=== PATIENT | male | born 1950 | race Caucasian/White ===

== ENCOUNTER → 2023-04-10 | Outpatient (CLI) | payer MEDICARE, SELFPAY ==
[2023-04-07 09:49] LABS: BUN 6 mg/dL (7-18); EST Glomerular Filtration Rate 70 mL/min (>60); Est Glom Filt Rate - Afr Amer 85 mL/min (>60)
--- NOTE | 2023-04-10 15:43 | CT_ITS ---
STUDY: CTA NECK WITH CONTRAST REASON FOR EXAM: Male, 72 years old. CAROTID ARTERY STENOSIS RADIATION DOSAGE (If Supplied By Facility): CTDIvol = ( 25.29 ) mGy, DLP = ( 417.18 ) mGycm TECHNIQUE: CT angiography with multi-detector data acquisition was performed from the aortic arch to the skull base following intravenous administration of IV 100mL Isovue-370. MIP images were reconstructed from the axial data set. Post-processing of the angiographic images was performed, with multiplanar reformation and 3D reconstruction. Individualized dose optimization techniques were used for this CT. COMPARISON: None. FINDINGS: AORTIC ARCH: Nonspecific emphysematous changes in the lung apices. There is mild atherosclerotic calcific plaque formation of the aortic arch and great vessels arising from the aortic arch, without a hemodynamically significant stenosis. There is a normal origin of the brachiocephalic, left common carotid, and left subclavian arteries. RIGHT CAROTID ARTERIES: Normal right common carotid artery (CCA). There is mild atherosclerotic plaque formation with minimal narrowing of the right carotid bulb. There is mild to moderate atherosclerotic plaque formation of the origin of the right internal carotid artery with less than 50% cross sectional diameter stenosis. Normal visualized cervical portion of the right internal carotid artery. Normal origin of the right external carotid artery (ECA). LEFT CAROTID ARTERIES: Normal left common carotid artery (CCA). There is mild atherosclerotic plaque formation with minimal narrowing of the left carotid bulb. There is extensive atherosclerotic plaque formation of the origin of the left internal carotid artery with an estimated stenosis of greater than 70%. Normal visualized cervical portion of the left internal carotid artery. There is mild atherosclerotic plaque formation of the origin of the left external carotid artery with no stenosis. VERTEBRAL ARTERIES: Normal bilateral vertebral arteries. CT/CTA Neck W/WO Contrast IMPRESSION: Atherosclerotic disease, predominantly in the region of carotid bulb with high-grade stenosis at the origin of the left internal carotid artery. Less than 50% diameter stenosis at the origin and proximal right internal carotid artery. Normal bilateral vertebral arteries. Electronically Signed: Aracely Andrade MD at 17:42 EST ,
[2023-04-10 16:28] LABS: CREATININE FINGERSTICK 1.2 mg/dL (0.70-1.30); EGFR FINGERSTICK > 60.0000 mL/min (>60)
== END | disposition home or self-care (01) ==
LOC: CVS 15:38
PROVIDERS: PCP Internal Medicine; Referring Provider Surgery Vascular Surgery; Visit Provider Surgery Vascular Surgery
DX: I65.22 Occlusion and stenosis of left carotid artery (principal)
CPT/HCPCS: 36415; 70498; 82565; 84520; Q9967

== ENCOUNTER 2023-04-18 07:20 | Emergency (ER) | payer MEDICARE, SELFPAY ==
[2023-04-18 07:21] VITALS: BP 139/92; PULSE 67; RESP 18; TEMP 35.9; O2SAT 99; BMI 19.5
--- NOTE | 2023-04-18 07:45 | EKG12_ITS ---
Test Reason : REPEAT EKG Blood Pressure : / mmHG Vent. Rate : 042 BPM Atrial Rate : 042 BPM P-R Int : 176 ms QRS Dur : 140 ms QT Int : 498 ms P-R-T Axes : 078 -10 115 degrees QTc Int : 415 ms Marked sinus bradycardia with Premature supraventricular complexes Left bundle branch block Abnormal ECG Confirmed by MONI GERBER, CY ([id number]), editor greeting card HAILE FOWLER ([id number]) on 04/19/2023 9:24:15 AM Referred By: CJ Confirmed By:CY MONTENEGRO MD
[2023-04-18 07:47] LABS: Absolute Lymphocyte Count 1.85 X10^3/uL (0.83-4.51); Absolute Neutrophil Count 3.6 X10^3/uL (2.0-7.7); Basophil# 0.05 X10^3/uL; Basophil% 0.6 % (0-1); Eosinophil# 2.41 X10^3/uL; Eosinophils% 27.9 % (0-5); Hematocrit 48.3 % (40-54); Hemoglobin 15.9 g/dL (13.0-16.5); Lymphocyte # 1.85 X10^3/ul (0.83-4.51); Lymphocyte % 21.4 % (19-41); Mean Corp Hgb Conc 32.9 g/dL (32-36); Mean Corpuscular Hgb 31.6 pg (27.0-32.0); Mean Platelet Vol. 12.1 fl (6.2-12.0); Monocyte# 0.69 X10^3/uL; NRBC Flagged by Analyzer 0 % (0-5); Neutrophil % 41.8 % (47-70); POSITIVE DIFFERENTIAL YES; Platelet Count 180 K/mm3 (150-450); RBC Distribution Width CV 12.9 % (11.6-14.6); Red Blood Count 5.03 M/mm3 (4.6-6.2); White Blood Count 8.6 K/mm3 (4.4-11.0)
[2023-04-18] MEDS: Aspirin 81 MG TAB.CHEW 324 MG PO (08:01)
--- NOTE | 2023-04-18 08:03 | RAD_ITS ---
STUDY: X-RAY CHEST REASON FOR EXAM: Male, 72 years old. chest pain TECHNIQUE: 2 AP portable view of the chest. COMPARISON: None. FINDINGS: Normal heart size. No visualized consolidation. The lungs are clear and expanded. There is no demonstrated pleural abnormality. Sternal cerclage wires and vascular clips are present from a prior sternotomy and coronary artery bypass graft procedure (CABG). Normal mediastinum and chuck. Normal visualized pulmonary arteries. Normal visualized aortic arch and descending thoracic aorta. There are diffuse degenerative changes of the visualized thoracic spine. Normal visualized ribs, clavicles, and shoulders. There is no demonstrated abnormality of the visualized soft tissue structures of the upper abdomen. RAD/Chest 1 View (Portable) IMPRESSION: Degenerative changes, as described above. No demonstrated acute cardiopulmonary process. Electronically Signed: Geo Barroso MD at 8:13 EST ,
[2023-04-18 08:07] LABS: Anion Gap 6 (5-15); BUN 8 mg/dL (7-18); BUN/Creat Ratio 6.8 RATIO (10-20); Calcium,Total 8.9 mg/dL (8.5-10.1); Chloride 104 mmol/L (98-107); Creatinine, Serum 1.18 mg/dL (0.70-1.30); EST Glomerular Filtration Rate 65 mL/min (>60); Est Glom Filt Rate - Afr Amer 78 mL/min (>60); Estimated Creatinine Clearance 48.73 ml/min; Glucose 109 mg/dL (74-106); Potassium 3.7 mmol/L (3.5-5.1); Sodium Level 134 mmol/L (136-145); Troponin-I HS (w/2H Reflex) 12 pg/mL (3.0-78.0)
--- NOTE | 2023-04-18 08:07 | ED.VIS.CHEST ---
HPI History of Present Illness Chief Complaint: Chest Pain Narrative Narrative: 72-year-old male with history of cardiac disease, cardiac stents, CABG presenting with chest pain which started about 510 this morning. It woke him up from sleep. He admits to dyspepsia and pain that radiates up into the neck and into the left shoulder. Symptoms last about 5 minutes. He still has some GERD symptoms but states that it is normal for him. Patient does state he has a little bit of shortness of breath. Patient otherwise healthy before bed. No fevers, chills, cough. States he was initially dizzy and felt like the room was spinning when he stood up but this resolved return to baseline. [facility] Medical History HLD (hyperlipidemia) HTN (hypertension) Allergy/AdvReac Type Severity Reaction Status Date / Time No Known Allergies Allergy Verified 04/18/23 07:20 Surgical History Hx of CABG Social History Smoking Status: Former smoker ROS ROS ED Constitutional Constitutional ED: Denies chills, fever(s) or sweats Eyes Eyes: Denies blurry vision or change in vision ENT ENT ED: Denies ear pain or sore throat Cardiovascular Cardiovascular: Reports chest pain; Denies palpitations or racing heartbeat Respiratory/Chest Respiratory/Chest: Denies cough, dyspnea or sputum Gastrointestinal Gastrointestinal: Reports other Details: Dyspepsia ; Denies abdominal pain, constipation, diarrhea, nausea or vomiting Genitourinary Genitourinary ED: Denies dysuria, hematuria or urinary frequency Musculoskeletal Musculoskeletal: Denies arthralgias, myalgias or neck pain Integumentary Denies abscess, Abrasions or rash Neurologic Neurologic: Denies headache(s), paresthesias or weakness Psychiatric Psychiatric: Denies anxiety, depression, suicidal ideation or suicidal thoughts Endocrine Endocrinology: Denies polydipsia or polyuria EXAM Physical Exam Const Vital Signs: 04/18/23 07:21 04/18/23 07:21 04/18/23 07:43 Temperature 96.7 F L Temperature Source Temporal Pulse Rate 67 Respiratory Rate 18 Respiratory Effort Normal Non-Labored Blood Pressure 139/92 H Blood Pressure Mean 107 Pulse Ox 99 Oxygen Delivery Method Room Air Room Air 04/18/23 08:20 04/18/23 10:13 Temperature Temperature Source Pulse Rate 54 L 49 L Respiratory Rate 16 16 Respiratory Effort Blood Pressure 116/76 119/64 Blood Pressure Mean 89 82 Pulse Ox 96 98 Oxygen Delivery Method Room Air Room Air Positive well nourished Constitutional Narrative: Smiling and pleasant. General Appearance ED: Negative for pallor HEENT Reports moist mucous membranes normocephalic Eyes PERRL and EOMs intact bilaterally Chest Wall inspection of chest normal Resp normal respiratory effort and clear to auscultation bilaterally Auscultation: Negative for rales, rhonchi or wheezes Cardio regular rate and regular rhythm Extremity General Extremety ED: Negative for edema General Extremity: Negative for edema Neuro oriented x3 and CN's II-XII intact bilaterally Sensorium / Orientation: awake and alert Psych mental status grossly normal Skin no rashes or lesions noted General Skin Exam: Negative for jaundice or pallor MDM MDM MDM Narrative Medical decision making narrative: Patient presenting with chest pain, dyspepsia, shortness of breath. Differential includes ACS, CHF, pneumonia, acid reflux, GERD, peptic ulcer disease, dehydration, anemia, electrolyte normalities. PE was considered but patient is PERC negative. He does not have sharp pleuritic pain. Equal symmetric breath sounds or chest wall rise so unlikely to be pneumothorax. CBC was obtained to assess white blood cell count, hemoglobin, platelets. BMP to assess renal function, electrolytes, glucose. High-sensitivity troponin and EKG to assess for ischemia/dysrhythmia. Chest x-ray to rule out pneumonia or CHF. Patient was given aspirin 324 mg as well as a GI cocktail at his request because he is having some dyspepsia which he states is not new for him. EKG on my interpretation shows a sinus bradycardia at a rate of [address] elevation or depression. High-sensitivity troponin 12. Renal function electrolytes unremarkable. Chest x-ray my interpretation shows no acute process. On reevaluation at 10 AM the patient is feeling much better. He states he has a little bit of lightheadedness. Will obtain delta troponin and reevaluate him. Delta troponin at 10:12 AM this 12 and there is no significant interval change. Will ambulate the patient to see if he stable and if he is will discharge home. Patient steadily ambulated. I feel he safe for discharge home. Impression: 1. Chest pain 2. Lightheadedness 3. Dyspepsia Lab Data Attestation: I reviewed the patient's lab results. Labs: Laboratory Results - last 24 hr 04/18/23 04/18/23 07:38 09:36 WBC 8.6 RBC 5.03 Hgb 15.9 Hct 48.3 MCV 96.0 H MCH 31.6 MCHC 32.9 RDW Std Deviation 46.0 H RDW Coeff of [place] 12.9 Plt Count 180 MPV 12.1 H Immature Gran % (Auto) 0.300 Neut % (Auto) 41.8 L Lymph % (Auto) 21.4 [place] % (Auto) 8.0 Eos % (Auto) 27.9 H Baso % (Auto) 0.6 Absolute Neuts (auto) 3.6 Absolute Lymphs (auto) 1.85 Nucleated RBC % 0 Differential Comment SCANNED Sodium 134 L Potassium 3.7 Chloride 104 Carbon Dioxide 24.0 Anion Gap 6 BUN 8 Creatinine 1.18 Estim Creat Clear Calc 48.73 Est GFR (MDRD) Af Amer 78 Est GFR (MDRD) Non-Af 65 BUN/Creatinine Ratio 6.8 L Glucose 109 H Calcium 8.9 Troponin I High Sens 12 12 Radiography Diagnostic Testing: Clinical Impression(s) from Imaging Studies Chest X-Ray 04/18/23 08:03 IMPRESSION: Degenerative changes, as described above. No demonstrated acute cardiopulmonary process. Electronically Signed: Geo Barroso MD at 8:13 EST Reading Location ID and State: [address] [place] [address] , Service support , Discharge Plan Triage Chief Complaint: Chest Pain ED Provider: Kan Fine Dx/Rx/DC Orders Instructions: ED Chest Pain, Uncertain Cause Primary Care Provider: Faheem Lawrence Referrals: Faheem Lawrence MD [Primary Care Provider] - Disposition Disposition: Home, Self Care Capacity Legal Campaign Developer Reflex Medical hold order details:: IF a medical hold is selected below, a suggested order for a MEDICAL HOLD will reflex upon signing the document. Next of kin: [place] law dictates a PRIORITY LIST for identifying legal decision-maker/legal next of kin in the following order (LNOK): 1st: The patient?s legal guardian, if any 2nd: The patient's spouse (if status is questionable, consult Risk Management) 3rd: The patient?s adult child(donna) (majority, if multiple children) 4th: The patient?s parents 5th: The patient?s adult siblings (majority, if multiple children siblings)
--- OUTSIDE RECORDS SUMMARY | 2023-04-18 08:19 | XMS RPT_ITS | CCD ---
Author Name Unknown Address [id number] [place] [address] Organization [facility] Care Team Providers Care Process Controller Name Role Phone Renzo JENNINGS Hyacinth Unavailable [phone] Unavailable Primary Care Provider Unavailabl e VERO DÍAZ MD Primary Care Unavailable VERO DÍAZ MD Admitting Unavailable VERO DÍAZ MD Attending Unavailable VERO DÍAZ MD Consulting Unavailable PROVIDER, UNKNOWN Consulting Unavailable PROVIDER, UNKNOWN Consulting Unavailable PROVIDER, UNKNOWN Consulting Unavailable NED SINGH MD Primary Care Unavailabl e VERO DÍAZ MD Consulting Unavailable NED SINGH MD Admitting Unavailabl e NED SINGH MD Attending Unavailabl e PROVIDER, UNKNOWN Consulting Unavailable PROVIDER, UNKNOWN Consulting Unavailable PROVIDER, UNKNOWN Consulting Unavailable VERO DÍAZ MD Primary Care Unavailable VERO DÍAZ MD Admitting Unavailable VERO DÍAZ MD Attending Unavailable VERO DÍAZ MD Consulting Unavailable PROVIDER, UNKNOWN Consulting Unavailable PROVIDER, UNKNOWN Consulting Unavailable PROVIDER, UNKNOWN Consulting Unavailable VERO DÍAZ MD Admitting Unavailable VERO DÍAZ MD Attending Unavailable VERO DÍAZ MD Consulting Unavailable VERO DÍAZ MD Primary Care Unavailable PROVIDER, UNKNOWN Consulting Unavailable PROVIDER, UNKNOWN Consulting Unavailable PROVIDER, UNKNOWN Consulting Unavailable VERO DÍAZ MD Primary Care Unavailable VERO DÍAZ MD Admitting Unavailable VERO DÍAZ MD Attending Unavailable VERO DÍAZ MD Consulting Unavailable PROVIDER, UNKNOWN Consulting Unavailable PROVIDER, UNKNOWN Consulting Unavailable PROVIDER, UNKNOWN Consulting Unavailable NED SINGH MD Admitting Unavailabl e NED SINGH MD Primary Care Unavailabl e VERO DÍAZ MD Consulting Unavailable NED SINGH MD Attending Unavailabl e PROVIDER, UNKNOWN Consulting Unavailable PROVIDER, UNKNOWN Consulting Unavailable PROVIDER, UNKNOWN Consulting Unavailable Medications Current Medications Medication Drug Class(es) Dates Sig (Normalized) Sig (Original) traMADol hydrochloride 50 mg oral tablet (1 source) Opioid Agonist Start: 06-20-2021 End: 06-23-2021 take 1-2 tablets by mouth every six hours as needed for pain ULTRAM 50 MG TABS Take 1-2 tablet by mouth every six hours as needed for pain tramadol [id number] Hyacinth Muller PA-C Completed/Discontinued Medications Medication Drug Class(es) Dates Sig (Normalized) Sig (Original) aspirin 81 mg delayed release oral tablet (1 source) Platelet Aggregation Inhibitor, Nonsteroidal Anti-inflammatory Drug take 1 tablet by mouth once daily PAN ASPIRIN EC LOW DOSE 81 MG TBEC 1 tablet by mouth once a day aspirin [id number] Liz Lynn AT clopidogrel 75 mg oral tablet (1 source) P2Y12 Platelet Inhibitor take 1 tablet by mouth once daily CLOPIDOGREL BISULFATE 75 MG TABS 1 tablet by mouth once a day clopidogrel [id number] Liz Lynn AT 24 hr dilTIAZem hydrochloride 240 mg extended release oral tablet (1 source) Calcium Channel [place] take 1 tablet by mouth once daily DILTIAZEM HCL ER COATED BEADS 240 MG [id number] 1 tablet by mouth once a day diltiazem hcl [id number] Liz Lynn AT levothyroxine sodium 0.05 mg oral tablet (1 source) l-Thyroxine take 1 tablet by mouth once daily LEVOTHYROXINE SODIUM 50 MCG TABS 1 tablet by mouth once a day levothyroxine [id number] Liz Lynn AT lisinopril 10 mg oral tablet (1 source) Angiotensin Converting Enzyme Inhibitor take 1 tablet by mouth once daily LISINOPRIL 10 MG TABS 1 tablet by mouth once a day lisinopril [id number] Liz Lynn AT pravastatin sodium 40 mg oral tablet (1 source) HMG-CoA Reductase Inhibitor take 1 tablet by mouth once daily PRAVASTATIN SODIUM 40 MG TABS 1 tablet by mouth once a day pravastatin [id number] Liz Lynn AT Problems Active Problems Problem Classification Problem Date Documented Da te Episodic/Chronic Disorders of lipid metabolism (4 sources) Hyperlipidemia, unspecified; Translations: [Hyperlipidemia, unspecified] Onset: 06-03-2022 Chronic Essential hypertension (1 source) Essential (primary) hypertension; Translations: [Essential (primary) hypertension] Onset: 11-17-2022 Chronic Other connective tissue disease (20 sources) Adhesive capsulitis of left shoulder; Translations: [Adhesive capsulitis of left shoulder] Onset: 06-18-2021 06-18-2021 Episodic Other screening for suspected conditions (not mental disorders or infectious disease) (2 sources) Encounter for screening for malignant neoplasm of prostate; Translations: [Other specified abnormal findings of blood chemistry] Onset: 11-14-2022 Episodic Thyroid disorders (4 sources) Hypothyroidism, unspecified; Translations: [Hypothyroidism, unspecified] Onset: 11-14-2022 Chronic Past or Other Problems Problem Classification Problem Date Documented Da te Episodic/Chronic Diabetes mellitus without complication (1 source) Impaired fasting glucose; Translations: [Impaired fasting glucose] Onset: 11-14-2022 Episodic Other liver diseases (1 source) Abnormal levels of other serum enzymes; Translations: [Abnormal levels of other serum enzymes] Onset: 11-14-2022 Episodic Unclassified (1 source) Problem Results Test Name Value Interpretation Reference Range Facil ity Vital Signs Date Time Vital Sign Value Performing Clinician Facility 07-05-2021 15:00-0400 Diastolic blood pressure 72 mm[Hg] Edgar Golias PT Work Phone: [facility] 07-05-2021 15:00-0400 Heart rate 64 /min Edgar Golias PT Work Phone: [facility] 07-05-2021 15:00-0400 SaO2% (BldA) [Mass fraction] 98 % Edgar Golias PT Work Phone: [facility] 07-05-2021 15:00-0400 Systolic blood pressure 110 mm[Hg] Edgar Golias PT Work Phone: [facility] NEGATED: Highlighted [id number] 13:06-0400 Body height 175.26 cm Liz Lynn AT [facility] Work Phone: NEGATED: Highlighted [id number] 13:06-0400 Body height 175 cm Liz Lynn AT [facility] Work Phone: NEGATED: Highlighted [id number] 13:06-0400 Body mass index (BMI) [Ratio] 20.16 kg/m2 Liz Lynn AT [facility] Work Phone: NEGATED: Highlighted [id number] 13:06-0400 Body weight 61.69 kg Liz Lynn AT [facility] Work Phone: NEGATED: Highlighted [id number] 13:06-0400 Body weight 62 kg Liz Lynn AT [facility] Work Phone: Encounters Encounter Date Encounter Type Care Provider Facility Start: 02-13-2023 End: 02-13-2023 ambulatory NED GERBER [facility] Start: 11-17-2022 ambulatory VERO GERBER [facility] Start: 11-14-2022 End: 11-14-2022 ambulatory VERO GERBER [facility] Start: 09-09-2022 End: 09-09-2022 ambulatory VERO GERBER [facility] Start: 08-05-2022 End: 08-05-2022 ambulatory NED GERBER [facility] Start: 06-03-2022 End: 06-03-2022 ambulatory VERO GERBER [facility] Start: 10-05-2021 End: 10-05-2021 ambulatory Edgar Golias PT Work Phone: [facility] Physical Therapy Procedures Date Procedure Procedure Detail Performing Clinician Start: 06-18-2021 End: 06-20-2021 BP scrn no perf at interval Hyacinth Muller PA-C Work Phone: Start: 06-18-2021 End: 06-20-2021 Calc BMI norm parameters Hyacinth amador PA-C Work Phone: Start: 06-18-2021 End: 06-20-2021 Current tobacco non-user cad cap copd pv dm Hyacinth Muller PA-C Work Phone: Start: 06-18-2021 End: 06-20-2021 Docrev cur meds by jonah Muller PA-C Work Phone: Start: 06-18-2021 End: 06-20-2021 Pain doc pos and plan Hyacinth Pickett Work Phone: Start: 06-18-2021 End: 06-20-2021 Patient encounter procedure Hyacinth Muller PA-C Work Phone: Start: 06-18-2021 End: 06-18-2021 Radex shoulder complete minimum 2 views Hyacinth Muller PA-C Work Phone: NEGATED: Highlighted rowStart: 06-18-2021 End: 06-18-2021 Documentation of current medications Liz Lynn AT Plan of Treatment Date Care Activity Detail Author Start: 12-02-2021 Influenza vaccination [facility] Start: 04-03-2021 ADVANCE DIRECTIVE DISCUSSION ADVANCE DIRECTIVE DISCUSSION [facility] Start: 2016 PNEUMOCOCCAL: 65+ (1 - PCV) PNEUMOCOCCAL: 65+ (1 - PCV) [facility] Start: 2016 PNEUMOVAX AGE 65 AND OVER WITH 5YR LOOKBACK (#1) PNEUMOVAX AGE 65 AND OVER WITH 5YR LOOKBACK (#1) [facility] Start: 2001 SHINGRIX VACCINE (1 of 2) SHINGRIX VACCINE (1 of 2) [facility] Start: 1996 COLOGUARD (FIT-DNA) COLOGUARD (FIT-DNA) [facility] Start: 1996 Colonoscopy COLONOSCOPY [facility] Start: 1996 COLORECTAL CANCER SCREENING COLORECTAL CANCER SCREENING [facility] Start: [address] COLONOGRAPHY [facility] Start: 1996 DIABETES SCREEN DIABETES SCREEN [facility] Start: 1996 FECAL OCCULT BLOOD FECAL OCCULT BLOOD [facility] Start: 1996 SIGMOIDOSCOPY SIGMOIDOSCOPY [facility] Start: 1986 LIPID SCREEN LIPID SCREEN [facility] Start: 1970 Urine microalbumin profile DTAP,TDAP,TD (1 - Tdap) [facility] Start: 1969 HEPATITIS C SCREENING HEPATITIS C SCREENING [facility] Start: 1963 Adult depression screening assessment DEPRESSION SCREENING [facility] Start: 1956 COVID-19 VACCINE (#1) COVID-19 VACCINE (#1) [facility] Start: 1956 COVID-19 VACCINE (1) COVID-19 VACCINE (1) [facility] Start: 1951 COVID-19 VACCINE (#1) COVID-19 VACCINE (#1) [facility] Work Phone: [facility] Payers Date Payer Category Payer Medicare [id number] 2021 Medicare [employer]NA MEDICARE [employer] GOLD PLUS [id number] 2021-Present [phone] [address] [address] [place] [address] O [id number] 1950 Unknown [id number] 1950 Unknown [id number] 1950 Unknown [id number] 1950 Unknown [id number] 1950 Unknown [id number] 1950 Unknown [id number] Social History Date Type Detail Facility Tobacco smoking status NHIS Tobacco smoking consumption unknown [facility] Start: 1950 Sex Assigned At Not on file [facility] Start: 07-18-2021 End: 07-28-2021 Exposure to SARS-CoV-2 (event) Not sure [facility] NEGATED: Highlighted rowStart: 06-18-2021 End: 06-18-2021 Alcohol use Alcohol use [facility] Work Phone: NEGATED: Highlighted rowStart: 06-18-2021 End: 06-18-2021 Details of drug misuse behavior Details of drug misuse behavior [facility] Work Phone: NEGATED: Highlighted rowStart: 06-18-2021 End: 06-18-2021 Assertion Former smoker [facility] Work Phone: Clinical Notes 07-02-2021 to 10-05-2021 Edgar Duque, PT - 10/05/2021 12:41 PM EDTLstephanie Quiroz, PT - 09/22/2021 2:56 PM Edilia Duque, PT - 09/16/2021 11:36 AM Edilia Duque, PT - 09/09/2021 4:44 PM EDT Note Date & Type Note Facility 10-05-2021 History of Present illness Narrative Episode Visit Count: 20 Therapist That Will Oversee The Plan Of Care: Edgar Duque PT Start of Care Date: 07/05/21 Onset Date: 03/15/21 Plan of Care Certification Date: 08/26/21 Next Certification Due Date: 10/07/21 Patient Identified by Name and Date of : Yes REHABILITATION AND SPORTS THERAPY PHYSICAL THERAPY DISCONTINUANCE OF CARE PLAN OF CARE UPDATE: Assessment: Summer Vizcarra is discontinued from Physical Therapy services due to goal achievement. and Patient/Clinician mutual decision to discontinue current plan of care.. Patient was seen for 20 visits from Start of Care Date: 07/05/21 to 10/05/2021 and treatment included: Therapeutic exercise, Manual therapy, Patient/Family/Caregiver Education and Body mechanics training. Updated: 07/28/21 and 08/26/21 and 10/05/21 Goals for Episode of Care: created on 07/05/21 through 08/30/21 [place] in home exercise program. - met Patient will decrease pain rating to 0/10 to meet minimal clinical important difference for numeric pain rating scale. - met Patient will increase active ROM of L shoulder to symmetrical and WFL to allow pt to to improve performance of ADLs. - met Patient will demonstrate increase in L shoulder strength to 5/5 during manual muscle testing in order to improve function for prior functional tasks. - met Perform sleeping, reaching and dressing without pain. - met Patient Goals: regain use of L UE and improve sleep - met SUBJECTIVE: Patient Reason for Visit: Pt reports that overall he is doing very well. He denies any pain or functional limitations currently. He reports compliance with HEP 3-4x day. He reports plans to continue with HEP and that he also plans to join [email or web address]. He reports that sleeping, reaching and dressing are fully normalized. He even reports being able to retrieve coffee from overhead cupboard now. He reports confidence in his ability to continue HEP independently. Pain: Pain Pain Level: 0 Pain Location: Shoulder - Left Frequency: Intermittent Post Treatment Pain Post Treatment Pain Level: No Change Post Treatment Symptoms: No pain before, during or after. PROMIS Scales T-scores: mean of general population = 50. 5 points is clinically meaningfully difference Percentiles provide an indication of how the patient's score ranks in relation to the general population. Higher percentile rankings indicate better function/quality of life. 50th percentile is the average of the general population and indicates half of respondents had a worse score. T-scores: mean of general population = 50. 5 points is clinically meaningfully difference Percentiles provide an indication of how the patient's score ranks in relation to the general population. Higher percentile rankings indicate better function/quality of life. 50th percentile is the average of the general population and indicates half of respondents had a worse score. OBJECTIVE MEASURES WITH LEVEL OF FUNCTION: UE AROM L UE AROM: seated L Shoulder Extension: 86 Degrees L Shoulder Flex: 145 Degrees L Shoulder ABduction: 176 Degrees L Shoulder Internal Rotation (Functional): 5cm greater than R reaching behind back L Shoulder External Rotation (Functional): symmetrical with reaching behind head UE and Cervical Strength Strength Tested: Shoulder All L Shoulder Extension: 4+/5 L Shoulder Flexion: 5/5 L Shoulder Abduction (C5): 5/5 L Shoulder Internal Rotation: 5/5 L Shoulder External Rotation: 5/5 TREATMENT: Therapeutic Exercise: 1: UBE UEs only seat #6 height #2 x5 minutes (Discussed progress to this point and goal status in preparation for d/c) 2: seated L shoulder flexion and scaption jam stretch 2x10 3: standing L shoulder IR stretch behind back with rope and jam 3x10 4: HEP reviewed and continuation encouraged to tolerance. Re-assessment results were discussed patient and used as rationale for d/c plan recommendations. 7: L UE bodyblade arm at side blade horizontal up and down 3x30 seconds. 8: L UE bodyblade elbow flexed 90 degrees, blade vertical, side to side 3x30 seconds 9: Forward flexion left towel wall slides 1x10 with 5 seconds hold Skilled Intervention: Patient was educated in proper exercise technique and purpose for exercises. Skilled judgment was provided in selection of appropriate interventions. Correct performance of therapeutic exercises was facilitated with verbal, visual and tactile cuing. Patient education as noted. Manual Therapy: 1: Supine joint mobilizations for L shoulder: all were done with 3 rounds of oscillations followed by advancement of segment to new restriction and then oscillations again before further advancement of segment. These were all done very gently and based on pt tolerance. Joint glides as follows: flexion=posterior and inferior, abduction=inferior, IR=posterior and ER=anterior. 2 rounds for each motion. Skilled Intervention: Manual skills to improve joint mobility, ROM, and decrease pain. Utilized anatomy knowledge of the therapist, and assessment of patient's response to intervention. Billing Therapeutic Exercise Treatment Minutes: 25 Manual TherapyTreatment Minutes: 15 Total Treatment Time Minutes (timed/untimed): 40 Edgar Duque PT documented in this encounter [facility] 09-22-2021 History of Present illness Narrative Episode Visit Count: 19 Therapist That Will Oversee The Plan Of Care: Edgar Duque PT Start of Care Date: 07/05/21 Onset Date: 03/15/21 Plan of Care Certification Date: 08/26/21 Next Certification Due Date: 10/07/21 Patient Identified by Name and Date of : Yes REHABILITATION AND SPORTS THERAPY PHYSICAL THERAPY TREATMENT NOTE ASSESSMENT: Summer Vizcarra tolerated the session with no issues. He demonstrated improvements in tolerance for exercises and increase AROM of left shoulder.. The patient will continue to benefit from ongoing skilled physical therapy to progress toward set goals. PLAN FOR NEXT VISIT: POC update. SUBJECTIVE: Patient Reason for Visit: Patient reports left shoulder is improving.. He reports he can now sleep on left arm with no pain. Pain: Pain Pain Level: 0 Pain Location: Shoulder - Left Frequency: Intermittent Post Treatment Pain Post Treatment Pain Level: No Change Post Treatment Symptoms: no pain and feels good OBJECTIVE MEASURES WITH LEVEL OF FUNCTION: UE AROM L Shoulder Flex: 150 Degrees L Shoulder ABduction: 163 Degrees L Shoulder Internal Rotation (Functional): 1/2 cm less than right reaching behind back L Shoulder External Rotation (Functional): T4 reaching behind neck TREATMENT: Therapeutic Exercise: 1: UBE UEs only seat #6 height #2 x5 minutes (Discussed exercises during this time) 2: seated L shoulder flexion and scaption jam stretch 2x10 3: standing L shoulder IR stretch behind back with rope and jam 3x10 4: L UE alphabet tracing A-Z x1 with 2# weight. 5: L UE 5 on the wall 1-5 3x30 seconds with 2# weight 6: standing at door holding 4# ball against wall at shoulder height, 2x20 each for CW and CCW 7: L UE bodyblade arm at side blade horizontal up and down 3x30 seconds. 8: L UE bodyblade elbow flexed 90 degrees, blade vertical, side to side 3x30 seconds 9: Forward flexion left towel wall slides 1x10 with 5 seconds hold Skilled Intervention: Patient was educated in proper exercise technique and purpose for exercises. Skilled judgment was provided in selection of appropriate interventions. Correct performance of therapeutic exercises was facilitated with Episode Visit Count: 19 Manual Therapy: 1: Supine joint mobilizations for L shoulder: all were done with 3 rounds of oscillations followed by advancement of segment to new restriction and then oscillations again before further advancement of segment. These were all done very gently and based on pt tolerance. Joint glides as follows: flexion=posterior and inferior, abduction=inferior, IR=posterior and ER=anterior. 2 rounds for each motion. Skilled Intervention: Manual skills to improve joint mobility, ROM, and decrease pain. Utilized anatomy knowledge of the therapist, and assessment of patient's Billing Therapeutic Exercise Treatment Minutes: 25 Manual TherapyTreatment Minutes: 15 Total Treatment Time Minutes (timed/untimed): 40 . Jolly Porras PTA/Jessika Quiroz PT documented in this encounter [facility] 09-16-2021 History of Present illness Narrative Episode Visit Count: 18 Therapist That Will Oversee The Plan Of Care: Edgar Duque PT Start of Care Date: 07/05/21 Onset Date: 03/15/21 Plan of Care Certification Date: 08/26/21 Next Certification Due Date: 10/07/21 Patient Identified by Name and Date of : Yes REHABILITATION AND SPORTS THERAPY PHYSICAL THERAPY TREATMENT NOTE ASSESSMENT: Summer Vizcarra tolerated the session with fatigue. He demonstrated improvements in pain, ROM, strength and functional use of L UE. The patient will continue to benefit from ongoing skilled physical therapy to progress toward set goals. PLAN FOR NEXT VISIT: Continue with therex for L shoulder ROM and strength. Continue manual therapy, especially joint mobilizations to facilitate arthrokinematics. SUBJECTIVE: Patient Reason for Visit: Pt reports continued progressive improvements. He reports significant functional improvements with reaching and use of L UE. He denies any problems following last session but that he received a vaccination in his L shoulder the day after last session and this caused increased pain in L shoulder that improved yesterday. He reports compliance with HEP 4x day. Pain: Pain Pain Level: 0 Pain Location: Shoulder - Left Description: (no pain to start) Frequency: Intermittent Post Treatment Pain Post Treatment Pain Level: No Change Post Treatment Pain Location: Shoulder - Left Post Treatment Pain Description: (mild fatigue) Post Treatment Symptoms: After session, pt reported less fatigue than last session and he denied any increase in pain. OBJECTIVE MEASURES WITH LEVEL OF FUNCTION: TREATMENT: Therapeutic Exercise: 1: UBE UEs only seat #6 height #2 x5 minutes (Subjective taken and discussed progress. Pt response to treatment since last session discussed.) 2: seated L shoulder flexion and scaption jam stretch 2x10 3: standing L shoulder IR stretch behind back with rope and jam 3x10 4: L UE alphabet tracing A-Z x1 with 2# weight. 5: L UE 5 on the wall 1-5 3x30 seconds with 2# weight 6: standing at door holding 4# ball against wall at shoulder height, 2x20 each for CW and CCW 7: L UE bodyblade arm at side blade horizontal up and down 3x30 seconds. 8: L UE bodyblade elbow flexed 90 degrees, blade vertical, side to side 3x30 seconds 10: HEP reviewed and continuation encouraged to tolerance. Skilled Intervention: Patient was educated in proper exercise technique and purpose for exercises. Skilled judgment was provided in selection of appropriate interventions. Correct performance of therapeutic exercises was facilitated with verbal, visual and tactile cuing. Patient education as noted. Manual Therapy: 1: Supine joint mobilizations for L shoulder: all were done with 3 rounds of oscillations followed by advancement of segment to new restriction and then oscillations again before further advancement of segment. These were all done very gently and based on pt tolerance. Joint glides as follows: flexion=posterior and inferior, abduction=inferior, IR=posterior and ER=anterior. 2 rounds for each motion. Skilled Intervention: Manual skills to improve joint mobility, ROM, and decrease pain. Utilized anatomy knowledge of the therapist, and assessment of patient's response to intervention. Billing Therapeutic Exercise Treatment Minutes: 25 Manual TherapyTreatment Minutes: 15 Total Treatment Time Minutes (timed/untimed): 40 Edgar Duque PT documented in this encounter [facility] 09-09-2021 History of Present illness Narrative Episode Visit Count: 17 Therapist That Will Oversee The Plan Of Care: Edgar Duque PT Start of Care Date: 07/05/21 Onset Date: 03/15/21 Plan of Care Certification Date: 08/26/21 Next Certification Due Date: 10/07/21 Patient Identified by Name and Date of : Yes REHABILITATION AND SPORTS THERAPY PHYSICAL THERAPY TREATMENT NOTE ASSESSMENT: Summer Vizcarra tolerated the session with decreased symptoms and no issues. He demonstrated improvements in ROM, pain and function of L UE. The patient will continue to benefit from ongoing skilled physical therapy to progress toward set goals. PLAN FOR NEXT VISIT: Continue with therex for L shoulder ROM and strength. Continue manual therapy, especially joint mobilizations to facilitate arthrokinematics. Continue 1x week. SUBJECTIVE: Patient Reason for Visit: Pt reports continued progressive improvements overall. He reports increased ROM in L shoulder, decreased pain and therefore improved functional use of L UE. He denies any pain to start today and reports compliance with HEP 3x day. He reports noticeable improvements even since last session. Pain: Pain Pain Level: 0 Pain Location: Shoulder - Left Description: (no pain to start today) Frequency: Intermittent Post Treatment Pain Post Treatment Pain Level: No Change Post Treatment Pain Location: Shoulder - Left Post Treatment Pain Description: ( looser ) Post Treatment Symptoms: After session pt reported improvements without any increase in pain. OBJECTIVE MEASURES WITH LEVEL OF FUNCTION: TREATMENT: Therapeutic Exercise: 1: UBE UEs only seat #6 height #2 x5 minutes (Subjective taken and discussed progress. Pt response to treatment since last session discussed.) 2: seated L shoulder flexion and scaption jam stretch 2x10 3: standing L shoulder IR stretch behind back with rope and jam 3x10 4: L UE alphabet tracing A-Z x1 with 2# weight. 5: L UE 5 on the wall 1-5 3x30 seconds with 2# weight 6: standing at door holding 4# ball against wall at shoulder height, 2x20 each for CW and CCW 7: L UE bodyblade arm at side blade horizontal up and down 3x30 seconds. 8: HEP reviewed and continuation encouraged to tolerance. 9: L UE bodyblade elbow flexed 90 degrees, blade vertical, side to side 3x30 seconds Skilled Intervention: Patient was educated in proper exercise technique and purpose for exercises. Skilled judgment was provided in selection of appropriate interventions. Correct performance of therapeutic exercises was facilitated with verbal, visual and tactile cuing. Patient education as noted. Manual Therapy: 1: Supine joint mobilizations for L shoulder: all were done with 3 rounds of oscillations followed by advancement of segment to new restriction and then oscillations again before further advancement of segment. These were all done very gently and based on pt tolerance. Joint glides as follows: flexion=posterior and inferior, abduction=inferior, IR=posterior and ER=anterior. 2 rounds for each motion. Skilled Intervention: Manual skills to improve joint mobility, ROM, and decrease pain. Utilized anatomy knowledge of the therapist, and assessment of patient's response to intervention. Billing Therapeutic Exercise Treatment Minutes: 25 Manual TherapyTreatment Minutes: 15 Total Treatment Time Minutes (timed/untimed): 40 Edgar Duque PT documented in this encounter [facility] 08-26-2021 History of Present illness Narrative Episode Visit Count: 16 Therapist That Will Oversee The Plan Of Care: Edgar Duque PT Start of Care Date: 07/05/21 Onset Date: 03/15/21 Plan of Care Certification Date: 08/26/21 Next Certification Due Date: 10/07/21 Patient Identified by Name and Date of : Yes REHABILITATION AND SPORTS THERAPY PHYSICAL THERAPY PROGRESS REPORT PLAN OF CARE UPDATE: Assessment: Summer Vizcarra demonstrates significant improvement in lifting, sleeping, reaching behind back, reaching overhead, dressing and grooming . He hasprogressed toward goals. Patient continues to present with impairments in ADL's, overall function, range of motion and strength that interfere with . Current prognosis is Excellent due to: current objective clinical presentation;positive past response to therapy;good support system/ coping skills;within-session changes. He will benefit from continued skilled therapy services to meet the updated goals for this plan of care as noted below. Updated: 07/28/21 and 08/26/21 Goals for Episode of Care: created on 07/05/21 through 08/30/21 [place] in home exercise program. - met, will continue and progress to tolerance prn Patient will decrease pain rating to 0/10 to meet minimal clinical important difference for numeric pain rating scale. - partially met, will continue (pain is no longer constant, less frequent and less intense) Patient will increase active ROM of L shoulder to symmetrical and WFL to allow pt to to improve performance of ADLs. - partially met, will continue Patient will demonstrate increase in L shoulder strength to 5/5 during manual muscle testing in order to improve function for prior functional tasks. - partially met, will continue Perform sleeping, reaching and dressing without pain. - partially met, will continue Patient Goals: regain use of L UE and improve sleep - partially met, will continue Planned Interventions, Frequency, and Duration: 1x/week, 6 weeks Total Number of Visits Planned: 6 Patient to be seen for Therapeutic exercise (02035);Manual therapy (74155);Therapeutic activities (61197);Self-prison management (37162);Patient/Family/Caregiver Education;Body Mechanics Training;Neuromuscular re-education (24932) PLAN FOR NEXT VISIT: Continue with therex for L shoulder ROM and strength. Continue manual therapy, especially joint mobilizations to facilitate arthrokinematics. Re-assess for plan of care update. SUBJECTIVE: Patient Reason for Visit: Pt reports that overall he is doing very well and getting progressively better. He reports increasing ROM in L shoulder and decreasing pain since evaluation. He denies any pain or limitations with dressing. He reports that bathing is much better still limited with reaching across his body to R shoulder. He denies any pain to start today. He reports complaince with HEP 3x day and that he has been able to reach farther. He also reports that he is now able to sleep through the night without any pain or limitations from L shoulder. He reports that he is even able to sleep on L side now. He reports improved functional reaching ability to cupboards to retrieve coffee and that reaching behind is functionally improved. Pain: Pain Pain Level: 0 Pain Location: Shoulder - Left Description: (no pain to start today) Frequency: Intermittent Post Treatment Pain Post Treatment Pain Level: No Change Post Treatment Pain Location: Shoulder - Left Post Treatment Pain Description: (fatigue only) Post Treatment Symptoms: After session today pt reported fatigue from a good workout but he denied any increase in pain PROMIS Scales T-scores: mean of general population = 50. 5 points is clinically meaningfully difference Percentiles provide an indication of how the patient's score ranks in relation to the general population. Higher percentile rankings indicate better function/quality of life. 50th percentile is the average of the general population and indicates half of respondents had a worse score. T-scores: mean of general population = 50. 5 points is clinically meaningfully difference Percentiles provide an indication of how the patient's score ranks in relation to the general population. Higher percentile rankings indicate better function/quality of life. 50th percentile is the average of the general population and indicates half of respondents had a worse score. OBJECTIVE MEASURES WITH LEVEL OF FUNCTION: UE AROM L UE AROM: seated L Shoulder Extension: 72 Degrees L Shoulder Flex: 130 Degrees L Shoulder ABduction: 163 Degrees L Shoulder Internal Rotation (Functional): 2cm less than R reaching behind back L Shoulder External Rotation (Functional): 2cm less than R reaching behind head. TREATMENT: Therapeutic Exercise: 1: UBE UEs only seat #6 height #2 x5 minutes (Subjective taken and discussed progress. Pt response to treatment since last session discussed.) 2: seated L shoulder flexion and scaption jam stretch 2x10 3: standing L shoulder IR stretch behind back with rope and jam 2x10 4: L UE alphabet tracing A-Z x1 with 2# weight. 5: L UE 5 on the wall 1-5 3x30 seconds with 2# weight 6: standing at door holding 4# ball against wall at shoulder height, 2x20 each for CW and CCW 7: L UE bodyblade arm at side blade horizontal up and down 3x30 seconds. 8: HEP reviewed and continuation encouraged to tolerance. Based on change in visit frequency, HEP modifications were discussed and recommendations made. 9: Re-assessment results were reviewed with patient and used as rationale for recommended plan of care updates. Skilled Intervention: Patient was educated in proper exercise technique and purpose for exercises. Skilled judgment was provided in selection of appropriate interventions. Correct performance of therapeutic exercises was facilitated with verbal, visual and tactile cuing. Patient education as noted. Manual Therapy: 1: Supine joint mobilizations for L shoulder: all were done with 3 rounds of oscillations followed by advancement of segment to new restriction and then oscillations again before further advancement of segment. These were all done very gently and based on pt tolerance. Joint glides as follows: flexion=posterior and inferior, abduction=inferior, IR=posterior and ER=anterior. 2 rounds for each motion. Skilled Intervention: Manual skills to improve joint mobility, ROM, and decrease pain. Utilized anatomy knowledge of the therapist, and assessment of patient's response to intervention. Billing Therapeutic Exercise Treatment Minutes: 45 Manual TherapyTreatment Minutes: 15 Total Treatment Time Minutes (timed/untimed): 60 Edgar Duque PT documented in this encounter [facility] 08-23-2021 History of Present illness Narrative Episode Visit Count: 15 Therapist That Will Oversee The Plan Of Care: Edgar Duque PT Start of Care Date: 07/05/21 Onset Date: 03/15/21 Plan of Care Certification Date: 07/28/21 Next Certification Due Date: 08/25/21 Patient Identified by Name and Date of : Yes REHABILITATION AND SPORTS THERAPY PHYSICAL THERAPY TREATMENT NOTE ASSESSMENT: Summer Vizcarra tolerated the session with fatigue, expected muscle soreness and no issues. He demonstrated improvements in pain, exercise tolerance and AROM. The patient will continue to benefit from ongoing skilled physical therapy to progress toward set goals and for reassessment by supervising therapist. PLAN FOR NEXT VISIT: Continue with therex for L shoulder ROM and strength. Continue manual therapy, especially joint mobilizations to facilitate arthrokinematics. Re-assess for plan of care update. SUBJECTIVE: Patient Reason for Visit: Pt reports continued progressive improvements. He reports compliance with HEP 3x day. He reports pain at end range but no pain at rest. He reports improved reaching and lifting but reaching across body is still painfully limited. Pain: Pain Pain Level: 0 Pain Location: Shoulder - Left Description: (no pain to start today) Frequency: Intermittent Post Treatment Pain Post Treatment Pain Level: No Change Post Treatment Pain Location: Shoulder - Left Post Treatment Pain Description: (good workout) Post Treatment Symptoms: After session today, pt reported getting a good workout but he denied any increase in pain. OBJECTIVE MEASURES WITH LEVEL OF FUNCTION: TREATMENT: Therapeutic Exercise: 1: UBE UEs only seat #6 height #2 x5 minutes (Subjective taken and discussed progress. Pt response to treatment since last session discussed.) 2: seated L shoulder flexion and scaption jam stretch 2x10 3: standing L shoulder IR stretch behind back with rope and jam 2x10 4: L UE alphabet tracing A-Z x1 with 2# weight. 5: L UE 5 on the wall 1-5 3x30 seconds with 2# weight 6: standing at door holding 4# ball against wall at shoulder height, 2x20 each for CW and CCW 7: L UE bodyblade arm at side blade horizontal up and down 3x30 seconds. 8: HEP reviewed and continuation encouraged to tolerance. Skilled Intervention: Patient was educated in proper exercise technique and purpose for exercises. Skilled judgment was provided in selection of appropriate interventions. Correct performance of therapeutic exercises was facilitated with verbal, visual and tactile cuing. Patient education as noted. Manual Therapy: 1: Supine joint mobilizations for L shoulder: all were done with 3 rounds of oscillations followed by advancement of segment to new restriction and then oscillations again before further advancement of segment. These were all done very gently and based on pt tolerance. Joint glides as follows: flexion=posterior and inferior, abduction=inferior, IR=posterior and ER=anterior. 2 rounds for each motion. Skilled Intervention: Manual skills to improve joint mobility, ROM, and decrease pain. Utilized anatomy knowledge of the therapist, and assessment of patient's response to intervention. Billing Therapeutic Exercise Treatment Minutes: 25 Manual TherapyTreatment Minutes: 15 Total Treatment Time Minutes (timed/untimed): 40 Edgar Duque PT documented in this encounter [facility] 08-19-2021 History of Present illness Narrative Episode Visit Count: 14 Therapist That Will Oversee The Plan Of Care: Edgar Duque PT Start of Care Date: 07/05/21 Onset Date: 03/15/21 Plan of Care Certification Date: 07/28/21 Next Certification Due Date: 08/25/21 Patient Identified by Name and Date of : Yes REHABILITATION AND SPORTS THERAPY PHYSICAL THERAPY TREATMENT NOTE ASSESSMENT: Summer Vizcarra tolerated the session with decreased pain. He demonstrated improvements in pain, ROM and exercise tolerance. The patient will continue to benefit from ongoing skilled physical therapy to progress toward set goals. PLAN FOR NEXT VISIT: Continue with therex for L shoulder ROM and strength. Continue manual therapy, especially joint mobilizations to facilitate arthrokinematics. SUBJECTIVE: Patient Reason for Visit: Pt reports that he has had increased pain since the evening of 08/16/21 without explanation. He reports continued compliance with HEP. Pain: Pain Pain Level: 2 Pain Location: Shoulder - Left Description: Aching Frequency: Intermittent Post Treatment Pain Post Treatment Pain Level: 0 Post Treatment Pain Location: Shoulder - Left Post Treatment Pain Description: (better) Post Treatment Symptoms: After session pt reported that his pain was abolished and that he felt better. OBJECTIVE MEASURES WITH LEVEL OF FUNCTION: TREATMENT: Therapeutic Exercise: 1: UBE UEs only seat #6 height #2 x5 minutes (Subjective taken and discussed progress. Pt response to treatment since last session discussed.) 2: seated L shoulder flexion and scaption jam stretch 2x10 3: standing L shoulder IR stretch behind back with rope and jam 2x10 4: L UE alphabet tracing A-Z x1 with 1.5# weight. 5: L UE 5 on the wall 1-5 3x30 seconds with 1.5# weight 6: standing at door holding 4# ball against wall at shoulder height, 2x20 each for CW and CCW 7: L UE bodyblade arm at side blade horizontal up and down 3x30 seconds. 8: HEP reviewed and continuation encouraged to tolerance. Skilled Intervention: Patient was educated in proper exercise technique and purpose for exercises. Skilled judgment was provided in selection of appropriate interventions. Correct performance of therapeutic exercises was facilitated with verbal, visual and tactile cuing. Patient education as noted. Manual Therapy: 1: Supine joint mobilizations for L shoulder: all were done with 3 rounds of oscillations followed by advancement of segment to new restriction and then oscillations again before further advancement of segment. These were all done very gently and based on pt tolerance. Joint glides as follows: flexion=posterior and inferior, abduction=inferior, IR=posterior and ER=anterior. 2 rounds for each motion. Skilled Intervention: Manual skills to improve joint mobility, ROM, and decrease pain. Utilized anatomy knowledge of the therapist, and assessment of patient's response to intervention. Billing Therapeutic Exercise Treatment Minutes: 25 Manual TherapyTreatment Minutes: 15 Total Treatment Time Minutes (timed/untimed): 40 Edgar Duque PT documented in this encounter [facility] 08-16-2021 History of Present illness Narrative Episode Visit Count: 13 Therapist That Will Oversee The Plan Of Care: Edgar Duque PT Start of Care Date: 07/05/21 Onset Date: 03/15/21 Plan of Care Certification Date: 07/28/21 Next Certification Due Date: 08/25/21 Patient Identified by Name and Date of : Yes REHABILITATION AND SPORTS THERAPY PHYSICAL THERAPY TREATMENT NOTE ASSESSMENT: Summer Vizcarra tolerated the session with no issues. He demonstrated improvements in ROM and pain control. The patient will continue to benefit from ongoing skilled physical therapy to progress toward set goals. PLAN FOR NEXT VISIT: Continue with therex for L shoulder ROM and strength. Continue manual therapy, especially joint mobilizations to facilitate arthrokinematics. SUBJECTIVE: Patient Reason for Visit: Pt reports that overall he is doing well and getting better. He denies any pain to start today. 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 He reports compliance with HEP 3x day. Pain: Pain Pain Level: 0 Pain Location: Shoulder - Left Description: (No pain to start today) Frequency: Intermittent Post Treatment Pain Post Treatment Pain Level: 0 Post Treatment Pain Location: Shoulder - Left Post Treatment Pain Description: (no increase in pain despite soreness with end range stretching) Post Treatment Symptoms: After session pt reported that his L shoulder felt looser but was still not painful. OBJECTIVE MEASURES WITH LEVEL OF FUNCTION: TREATMENT: Therapeutic Exercise: 1: UBE UEs only seat #6 height #2 x5 minutes (Subjective taken and discussed progress. Reason for this exercise and the resistance explained.) 2: seated L shoulder flexion and scaption jam stretch 2x10 3: standing L shoulder IR stretch behind back with rope and jam 2x10 4: L UE alphabet tracing A-Z x1 with 1.5# weight. 5: L UE 5 on the wall 1-5 3x30 seconds with 1.5# weight 6: standing at door holding 4# ball against wall at shoulder height, 2x20 each for CW and CCW 7: seated table top L shoulder flexion stretch 2x30 seconds 8: seated table top L shoulder abduction stretch 2x30 seconds 9: seated table top L shoulder ER stretch 2x30 seconds 10: HEP reviewed and continuation encouraged to tolerance. Skilled Intervention: Patient was educated in proper exercise technique and purpose for exercises. Skilled judgment was provided in selection of appropriate interventions. Correct performance of therapeutic exercises was facilitated with verbal, visual and tactile cuing. Patient education as noted. Manual Therapy: 1: Supine joint mobilizations for L shoulder: all were done with 3 rounds of oscillations followed by advancement of segment to new restriction and then oscillations again before further advancement of segment. These were all done very gently and based on pt tolerance. Joint glides as follows: flexion=posterior and inferior, abduction=inferior, IR=posterior and ER=anterior. 2 rounds for each motion. Skilled Intervention: Manual skills to improve joint mobility, ROM, and decrease pain. Utilized anatomy knowledge of the therapist, and assessment of patient's response to intervention. Billing Therapeutic Exercise Treatment Minutes: 30 Manual TherapyTreatment Minutes: 15 Total Treatment Time Minutes (timed/untimed): 45 Edgar Duque PT documented in this encounter [facility] 08-12-2021 History of Present illness Narrative Episode Visit Count: 12 Therapist That Will Oversee The Plan Of Care: Edgar Duque PT Start of Care Date: 07/05/21 Onset Date: 03/15/21 Plan of Care Certification Date: 07/28/21 Next Certification Due Date: 08/25/21 Patient Identified by Name and Date of : Yes REHABILITATION AND SPORTS THERAPY PHYSICAL THERAPY TREATMENT NOTE ASSESSMENT: Summer Vizcarra tolerated the session with no issues and looser. He demonstrated improvements in ROM and exercise tolerance. The patient will continue to benefit from ongoing skilled physical therapy to progress toward set goals. PLAN FOR NEXT VISIT: Continue with therex for L shoulder ROM and strength. Continue manual therapy, especially joint mobilizations to facilitate arthrokinematics. SUBJECTIVE: Patient Reason for Visit: Pt reports that overall he is getting progressively better. He reports that he is able to do more with his L UE now. He reports that he is able to reach farther during his shower. He reports compliance with HEP 3x day. He denies any pain to start today. Pain: Pain Pain Level: 0 Pain Location: Shoulder - Left Description: (no pain to start) Frequency: Intermittent Post Treatment Pain Post Treatment Pain Level: No Change Post Treatment Pain Location: Shoulder - Left Post Treatment Pain Description: ( looser ) Post Treatment Symptoms: After session pt reported that his shoulder felt looser but not more painful. OBJECTIVE MEASURES WITH LEVEL OF FUNCTION: TREATMENT: Therapeutic Exercise: 1: UBE UEs only seat #6 height #2 x5 minutes (Subjective taken and discussed progress. Reason for this exercise and the resistance explained.) 2: seated L shoulder flexion and scaption jam stretch 2x10 3: standing L shoulder IR stretch behind back with rope and jam 2x10 4: L UE alphabet tracing A-Z x1 without weight 5: L UE 5 on the wall 1-5 3x45 seconds without weight 6: standing at door holding 4# ball against wall at shoulder height, 2x20 each for CW and CCW 7: seated physioball flexion 3x30 second hold at end range x3 reps 8: seated physioball stretch in scaption direction 3x30 seconds 9: HEP reviewed and continuation encouraged to tolerance. Skilled Intervention: Patient was educated in proper exercise technique and purpose for exercises. Skilled judgment was provided in selection of appropriate interventions. Correct performance of therapeutic exercises was facilitated with verbal, visual and tactile cuing. Patient education as noted. Manual Therapy: 1: Supine joint mobilizations for L shoulder: all were done with 3 rounds of oscillations followed by advancement of segment to new restriction and then oscillations again before further advancement of segment. These were all done very gently and based on pt tolerance. Joint glides as follows: flexion=posterior and inferior, abduction=inferior, IR=posterior and ER=anterior. 2 rounds for each motion. Skilled Intervention: Manual skills to improve joint mobility, ROM, and decrease pain. Utilized anatomy knowledge of the therapist, and assessment of patient's response to intervention. Billing Therapeutic Exercise Treatment Minutes: 30 Manual TherapyTreatment Minutes: 15 Total Treatment Time Minutes (timed/untimed): 45 Edgar Duque PT documented in this encounter [facility] 08-10-2021 History of Present illness Narrative Episode Visit Count: 11 Therapist That Will Oversee The Plan Of Care: Edgar Duque PT Start of Care Date: 07/05/21 Onset Date: 03/15/21 Plan of Care Certification Date: 07/28/21 Next Certification Due Date: 08/25/21 Patient Identified by Name and Date of : Yes REHABILITATION AND SPORTS THERAPY PHYSICAL THERAPY TREATMENT NOTE ASSESSMENT: Summer Vizcarra tolerated the session with fatigue, expected muscle soreness and no issues. He demonstrated improvements in ROM, exercise tolerance and functional ability. The patient will continue to benefit from ongoing skilled physical therapy to progress toward set goals. Pt L shoulder ROM advanced with a breakthrough during joint mobilizations despite no additional pressure. PLAN FOR NEXT VISIT: Continue with therex for L shoulder ROM and strength. Continue manual therapy, especially joint mobilizations to facilitate arthrokinematics. SUBJECTIVE: Patient Reason for Visit: Pt reports having cardiac tests yesterday and as a result he is very tired today. He denies any pain in L shoulder to start today. He reports continued progressive improvements. He reports compliance with HEP 3x day. He reports increased ROM in L shoulder. He reports that he is able to put his L UE up on window in car and increased motion when using pulleys. Pain: Pain Pain Level: 0 Pain Location: Shoulder - Left Description: (no pain to start today) Frequency: Intermittent Post Treatment Pain Post Treatment Pain Level: No Change Post Treatment Pain Location: Shoulder - Left Post Treatment Pain Description: (fatigue) Post Treatment Symptoms: After session today, pt reported fatigue but denied any increase in pain. OBJECTIVE MEASURES WITH LEVEL OF FUNCTION: TREATMENT: Therapeutic Exercise: 1: UBE UEs only seat #6 height #2 x5 minutes (Subjective taken and discussed progress. Reason for this exercise and the resistance explained.) 2: seated L shoulder flexion and scaption jam stretch 2x10 3: standing L shoulder IR stretch behind back with rope and jam 2x10 4: L UE alphabet tracing A-Z x1 without weight 5: L UE 5 on the wall 1-5 3x45 seconds without weight 6: standing at door holding 2# ball against wall at shoulder height, 2x20 each for CW and CCW 7: seated physioball flexion x45 second hold at end range x3 reps 8: seated physioball stretch in scaption direction x45 seconds 9: HEP reviewed and continuation encouraged to tolerance. Skilled Intervention: Patient was educated in proper exercise technique and purpose for exercises. Skilled judgment was provided in selection of appropriate interventions. Correct performance of therapeutic exercises was facilitated with verbal, visual and tactile cuing. Patient education as noted. Manual Therapy: 1: Supine joint mobilizations for L shoulder: all were done with 3 rounds of oscillations followed by advancement of segment to new restriction and then oscillations again before further advancement of segment. These were all done very gently and based on pt tolerance. Joint glides as follows: flexion=posterior and inferior, abduction=inferior, IR=posterior and ER=anterior. 2 rounds for each motion. Skilled Intervention: Manual skills to improve joint mobility, ROM, and decrease pain. Utilized anatomy knowledge of the therapist, and assessment of patient's response to intervention. Billing Therapeutic Exercise Treatment Minutes: 30 Manual TherapyTreatment Minutes: 15 Total Treatment Time Minutes (timed/untimed): 45 Edgar Duque PT documented in this encounter [facility] 08-05-2021 History of Present illness Narrative Episode Visit Count: 10 Therapist That Will Oversee The Plan Of Care: Edgar Duque PT Start of Care Date: 07/05/21 Onset Date: 03/15/21 Plan of Care Certification Date: 07/28/21 Next Certification Due Date: 08/25/21 Patient Identified by Name and Date of : Yes REHABILITATION AND SPORTS THERAPY PHYSICAL THERAPY TREATMENT NOTE ASSESSMENT: Summer Vizcarra tolerated the session with decreased pain. He demonstrated improvements in ROM, exercise tolerance and function. The patient will continue to benefit from ongoing skilled physical therapy to progress toward set goals. PLAN FOR NEXT VISIT: Continue with therex for L shoulder ROM and strength. Continue manual therapy, especially joint mobilizations to facilitate arthrokinematics. SUBJECTIVE: Patient Reason for Visit: Pt reports that overall he is doing better with increased ROM and decreased pain. He reports functional improvements with sleeping, dressing and showering. He reports compliance with HEP 3x day. He reports continued pain with L sidelying. Pain: Pain Pain Level: 0 Pain Location: Shoulder - Left Description: (no pain to start today) Frequency: Intermittent Post Treatment Pain Post Treatment Pain Level: Better Post Treatment Pain Location: Shoulder - Left Post Treatment Pain Description: (increased ROM, especially reaching up behind back) Post Treatment Symptoms: After session pt stated, I feel good now. OBJECTIVE MEASURES WITH LEVEL OF FUNCTION: TREATMENT: Therapeutic Exercise: 1: [employer] StepOne seat #12 x5 minutes (Subjective taken and discussed progress.) 2: seated L shoulder flexion and scaption jam stretch 3x10 3: standing L shoulder IR stretch behind back with rope and jam 3x10 4: L UE alphabet tracing A-Z x1 without weight 5: L UE 5 on the wall 1-5 3x30 seconds without weight 6: standing at door holding 2# ball against wall at shoulder height, 2 7: seated physioball flexion 30 second hold at end range x3 reps 8: seated physioball stretch in scaption direction 3x30 seconds 9: HEP reviewed and continuation encouraged to tolerance. Skilled Intervention: Patient was educated in proper exercise technique and purpose for exercises. Skilled judgment was provided in selection of appropriate interventions. Correct performance of therapeutic exercises was facilitated with verbal, visual and tactile cuing. Patient education as noted. Manual Therapy: 1: Supine joint mobilizations for L shoulder: all were done with 3 rounds of oscillations followed by advancement of segment to new restriction and then oscillations again before further advancement of segment. These were all done very gently and based on pt tolerance. Joint glides as follows: flexion=posterior and inferior, abduction=inferior, IR=posterior and ER=anterior. 2 rounds for each motion. Skilled Intervention: Manual skills to improve joint mobility, ROM, and decrease pain. Utilized anatomy knowledge of the therapist, and assessment of patient's response to intervention. Billing Therapeutic Exercise Treatment Minutes: 30 Manual TherapyTreatment Minutes: 15 Total Treatment Time Minutes (timed/untimed): 45 Edgar Duque PT documented in this encounter [facility] 08-02-2021 History of Present illness Narrative Episode Visit Count: 9 Therapist That Will Oversee The Plan Of Care: Edgar Duque PT Start of Care Date: 07/05/21 Onset Date: 03/15/21 Plan of Care Certification Date: 07/28/21 Next Certification Due Date: 08/25/21 Patient Identified by Name and Date of : Yes REHABILITATION AND SPORTS THERAPY PHYSICAL THERAPY TREATMENT NOTE ASSESSMENT: Summer Vizcarra tolerated the session with no issues. He demonstrated improvements in L shoulder ROM, pain and exercise tolerance. The patient will continue to benefit from ongoing skilled physical therapy to progress toward set goals. PLAN FOR NEXT VISIT: Continue with therex for L shoulder ROM and strength. Continue manual therapy, especially joint mobilizations to facilitate arthrokinematics. SUBJECTIVE: Patient Reason for Visit: Pt reports that overall he is getting better. He reports improved reaching ability in the shower. He reports compliance with HEP 3x day. He reports that he had some pain earlier this morning but 0/10 at start of session today. He also reports improved tolerance for dressing. Pain: Pain Pain Level: 0 Pain Location: Shoulder - Left Description: (no pain to start) Frequency: Intermittent Post Treatment Pain Post Treatment Pain Level: Better Post Treatment Pain Location: Shoulder - Left Post Treatment Pain Description: (no increase in pain) Post Treatment Symptoms: After session today, pt reported feeling better with no increase in pain. He reported feeling better. OBJECTIVE MEASURES WITH LEVEL OF FUNCTION: TREATMENT: Therapeutic Exercise: 1: [employer] StepOne seat #12 x5 minutes (Subjective taken and discussed progress.) 2: seated L shoulder flexion and scaption jam stretch 3x10 3: standing L shoulder IR stretch behind back with rope and jam 3x10 4: L UE alphabet tracing A-Z x1 without weight 5: L UE 5 on the wall 1-4 3x30 seconds without weight 7: seated physioball flexion 30 second hold at end range x2 reps 8: seated physioball stretch in scaption direction 2x30 seconds 9: HEP reviewed and continuation encouraged to tolerance. Skilled Intervention: Patient was educated in proper exercise technique and purpose for exercises. Skilled judgment was provided in selection of appropriate interventions. Correct performance of therapeutic exercises was facilitated with verbal, visual and tactile cuing. Patient education as noted. Manual Therapy: 1: Supine joint mobilizations for L shoulder: all were done with 3 rounds of oscillations followed by advancement of segment to new restriction and then oscillations again before further advancement of segment. These were all done very gently and based on pt tolerance. Joint glides as follows: flexion=posterior and inferior, abduction=inferior, IR=posterior and ER=anterior. 2 rounds for each motion. Skilled Intervention: Manual skills to improve joint mobility, ROM, and decrease pain. Utilized anatomy knowledge of the therapist, and assessment of patient's response to intervention. Billing Therapeutic Exercise Treatment Minutes: 30 Manual TherapyTreatment Minutes: 15 Total Treatment Time Minutes (timed/untimed): 45 Edgar Duque PT documented in this encounter [facility] 07-28-2021 History of Present illness Narrative Episode Visit Count: 8 Therapist That Will Oversee The Plan Of Care: Edgar Duque PT Start of Care Date: 07/05/21 Onset Date: 03/15/21 Plan of Care Certification Date: 07/28/21 Next Certification Due Date: 08/25/21 Patient Identified by Name and Date of : Yes REHABILITATION AND SPORTS THERAPY PHYSICAL THERAPY PROGRESS REPORT PLAN OF CARE UPDATE: Assessment: Summer Vizcarra demonstrates significant improvement in lifting, reaching behind back, reaching overhead, driving, dressing and grooming/showering. He has progressed toward goals but deficits persist. Patient continues to present with impairments in ADL's, overall function, range of motion and strength that interfere with . Current prognosis is Good due to: current objective clinical presentation;good overall health status;positive past response to therapy;within-session changes. He will benefit from continued skilled therapy services to meet the updated goals for this plan of care as noted below. Updated: 07/28/21 Goals for Episode of Care: created on 07/05/21 through 08/30/21 [place] in home exercise program. - met, will continue and progress to tolerance prn Patient will decrease pain rating by 2 points to meet minimal clinical important difference for numeric pain rating scale. - partially met, will continue (pain is no longer constant) Patient will increase active ROM of L shoulder to symmetrical and WFL to allow pt to to improve performance of ADLs. - partially met, will continue Patient will demonstrate increase in L shoulder strength to 5/5 during manual muscle testing in order to improve function for prior functional Tasks. - not met, will continue Perform sleeping, reaching and dressing without pain. - partially met, will continue Patient Goals: regain use of L UE and improve sleep - partially met, will continue Planned Interventions, Frequency, and Duration: 2x/week, 4 weeks Total Number of Visits Planned: 8 Patient to be seen for Therapeutic exercise (39712);Manual therapy (51554);Therapeutic activities (27898);Self-prison management ([id number]);Patient/Family/Caregiver Education;Body Mechanics Training;Neuromuscular re-education (97035) PLAN FOR NEXT VISIT: Continue with therex for L shoulder ROM and strength. Continue manual therapy, especially joint mobilizations to facilitate arthrokinematics. SUBJECTIVE: Patient Reason for Visit: Pt reports that overall he is doing much better. He reports that his pain is no longer constant. He also reports that at rest he does not have pain. He reports improved ROM as well. Functionally he reports that showering and drying off are easier, driving is less painful and that he can better close the car door now. He reports continued difficulty with reaching his seatbelt. He reports compliance with HEP 3x day. He also reports significant improvements with dressing. He reports that prior to PT he could not use his L UE at all for dressing. Pain: Pain Pain Level: 0 Pain Location: Shoulder - Left Description: (no pain at rest, 8/10 at worst with end range movement) Frequency: Intermittent Post Treatment Pain Post Treatment Pain Level: 0 Post Treatment Pain Location: Shoulder - Left Post Treatment Pain Description: (no increase in pain) Post Treatment Symptoms: Pt reported some pain with endrange movements but after session he denied any pain. PROMIS Scales T-scores: mean of general population = 50. 5 points is clinically meaningfully difference Percentiles provide an indication of how the patient's score ranks in relation to the general population. Higher percentile rankings indicate better function/quality of life. 50th percentile is the average of the general population and indicates half of respondents had a worse score. T-scores: mean of general population = 50. 5 points is clinically meaningfully difference Percentiles provide an indication of how the patient's score ranks in relation to the general population. Higher percentile rankings indicate better function/quality of life. 50th percentile is the average of the general population and indicates half of respondents had a worse score. OBJECTIVE MEASURES WITH LEVEL OF FUNCTION: UE AROM L UE AROM: seated L Shoulder Extension: 64 Degrees L Shoulder Flex: 111 Degrees L Shoulder ABduction: 116 Degrees L Shoulder Internal Rotation (Functional): 13 cm less than R reaching behind back L Shoulder External Rotation (Functional): 3.5 cm less than R reaching behind head TREATMENT: Therapeutic Exercise: 1: [employer] StepOne seat #12 x5 minutes (Subjective taken and discussed progress.) 2: seated L shoulder flexion and scaption jam stretch 3x10 3: standing L shoulder IR stretch behind back with rope and jam 3x10 4: supine wand AAROM for L shoulder flexion 2x10 5: Supine wand left ER stretch 2x10 6: supine wand AAROM for L shoulder abduction 2x10 7: seated physioball flexion 30 second hold at end range x2 reps 8: seated physioball stretch in scaption direction 2x30 seconds 9: HEP reviewed and continuation encouraged to tolerance. Skilled Intervention: Patient was educated in proper exercise technique and purpose for exercises. Skilled judgment was provided in selection of appropriate interventions. Correct performance of therapeutic exercises was facilitated with verbal, visual and tactile cuing. Patient education as noted. Manual Therapy: 1: Supine joint mobilizations for L shoulder: all were done with 3 rounds of oscillations followed by advancement of segment to new restriction and then oscillations again before further advancement of segment. These were all done very gently and based on pt tolerance. Joint glides as follows: flexion=posterior and inferior, abduction=inferior, IR=posterior and ER=anterior. 2 rounds for each motion. Skilled Intervention: Manual skills to improve joint mobility, ROM, and decrease pain. Utilized anatomy knowledge of the therapist, and assessment of patient's response to intervention. Billing Therapeutic Exercise Treatment Minutes: 30 Manual TherapyTreatment Minutes: 15 Total Treatment Time Minutes (timed/untimed): 45 Edgar Duque PT documented in this encounter [facility] 07-26-2021 History of Present illness Narrative Episode Visit Count: 7 Therapist That Will Oversee The Plan Of Care: Edgar Duque PT Start of Care Date: 07/05/21 Onset Date: 03/15/21 Plan of Care Certification Date: 07/05/21 Next Certification Due Date: 08/30/21 Patient Identified by Name and Date of : Yes REHABILITATION AND SPORTS THERAPY PHYSICAL THERAPY TREATMENT NOTE ASSESSMENT: Summer Vizcarra tolerated the session with expected muscle soreness. He demonstrated difficulty with reaching behind back into internal rotation and improved AROM all planes.Patient is very pleased with current progress.. The patient will continue to benefit from ongoing skilled physical therapy to progress toward set goals. PLAN FOR NEXT VISIT: Progress AAROM and continue manual therapy to assist with Increase ROM of left shoulder SUBJECTIVE: Patient Reason for Visit: Patient reports his shoulder is better. He reports still with difficulty reaching behind back. He is wondering if he will need the manipulation as he is feeling so much better. He reports seeing a [employer] who wants him to have a stress test and echocariogram. Pain: Pain Pain Level: 0 Pain Location: Shoulder - Left Frequency: Intermittent Post Treatment Pain Post Treatment Pain Level: No Change Post Treatment Symptoms: hurts with reaching behind back OBJECTIVE MEASURES WITH LEVEL OF FUNCTION: UE AROM L Shoulder Flex: 111 Degrees L Shoulder ABduction: 112 Degrees L Shoulder Internal Rotation (Functional): 12 cm less than right reaching behind back TREATMENT: Therapeutic Exercise: 1: [employer] StepOne seat #12 x5 minutes (Subjective taken and discussed progress.) 2: seated L shoulder flexion and scaption jam stretch 2x10 3: standing L shoulder IR stretch behind back with rope and jam 2x10 4: supine wand AAROM for L shoulder flexion 2x10 (education to slow done for end range stretch) 5: Seated wand left ER stretch 2x10 6: supine wand AAROM for L shoulder abduction 2x10 7: seated physioball flexion 30 second hold at end range x2 reps 8: seated physioball stretch in scaption direction 2x30 seconds 9: Standing wall slides flexion 2x10 10: Standing wand extension 1x10 Skilled Intervention: Patient was educated in proper exercise technique and purpose for exercises. Skilled judgment was provided in selection of appropriate interventions. Correct performance of therapeutic exercises was facilitated with verbal and visual cuing. Manual Therapy: 1: PROM left shoulder with joint distraction all planes 2x3x10 reps. Passive left shoulder with arm straight inferior and superior joint glides 2x10 Skilled Intervention: Manual skills to improve joint mobility, ROM, and decrease pain. Utilized anatomy knowledge of the therapist, and assessment of patient's response to intervention. Billing Therapeutic Exercise Treatment Minutes: 28 Manual TherapyTreatment Minutes: 17 Total Treatment Time Minutes (timed/untimed): 45 RACHEL Potter PT documented in this encounter [facility] 07-20-2021 History of Present illness Narrative Episode Visit Count: 6 Therapist That Will Oversee The Plan Of Care: Edgar Duque PT Start of Care Date: 07/05/21 Onset Date: 03/15/21 Plan of Care Certification Date: 07/05/21 Next Certification Due Date: 08/30/21 Patient Identified by Name and Date of : Yes REHABILITATION AND SPORTS THERAPY PHYSICAL THERAPY TREATMENT NOTE ASSESSMENT: Summer Vizcarra tolerated the session with expected muscle soreness. He demonstrated improvements in AROM of left shoulder. The patient will continue to benefit from ongoing skilled physical therapy to progress toward set goals. PLAN FOR NEXT VISIT: Progress AAROM and continue manual therapy to assist with Increase ROM of left shoulder SUBJECTIVE: Patient Reason for Visit: Patient reports this shoulder feels better after he does his exercises and the ache stops for a few hours. He reports feeeling aching currently. Pain: Pain Pain Level: 2 Pain Location: Shoulder - Left Description: Aching Frequency: Intermittent OBJECTIVE MEASURES WITH LEVEL OF FUNCTION: UE AROM L Shoulder Flex: 97 Degrees L Shoulder Internal Rotation (Functional): 18cm less than right reaching behind back TREATMENT: Therapeutic Exercise: 1: [employer] StepOne seat #12 x5 minutes (Discussed exercises during this time) 2: seated L shoulder flexion jam stretch 2x10 3: standing L shoulder IR stretch behind back with rope and jam 2x10 4: supine wand AAROM for L shoulder flexion 2x10 5: supine wand AAROM ER with elbows flexed 90 degrees 2x10 6: supine wand AAROM for L shoulder abduction 2x10 7: seated tabletop flexion 30 second hold at end range x3 reps 8: seated tabletop stretch in scaption direction 3x30 seconds Skilled Intervention: Patient was educated in proper exercise technique and purpose for exercises. Skilled judgment was provided in selection of appropriate interventions. Correct performance of therapeutic exercises was facilitated with verbal cuing. Manual Therapy: 1: PROM left shoulder with joint distraction all planes 2x10 reps. Passive left shoulder with arm straight inferior and superior joint glides 2x10 Skilled Intervention: Manual skills to improve joint mobility, ROM, and decrease pain. Utilized anatomy knowledge of the therapist, and assessment of patient's response to intervention. Billing Therapeutic Exercise Treatment Minutes: 30 Manual TherapyTreatment Minutes: 15 Total Treatment Time Minutes (timed/untimed): 45 RACHEL Potter PT documented in this encounter [facility] 07-14-2021 History of Present illness Narrative Episode Visit Count: 5 Therapist That Will Oversee The Plan Of Care: Edgar Duque PT Start of Care Date: 07/05/21 Onset Date: 03/15/21 Plan of Care Certification Date: 07/05/21 Next Certification Due Date: 08/30/21 Patient Identified by Name and Date of : Yes REHABILITATION AND SPORTS THERAPY PHYSICAL THERAPY TREATMENT NOTE ASSESSMENT: Summer Vizcarra tolerated the session with no issues. He demonstrated improvements in AROM, pain, sleeping and exercise tolerance. The patient will continue to benefit from ongoing skilled physical therapy to progress toward set goals. PLAN FOR NEXT VISIT: Continue with therex and possibly joint mobilizations. Focus on ROM of L shoulder without a severe increase in pain. SUBJECTIVE: Patient Reason for Visit: Pt reports that overall he is feeling better. He reports that his L shoulder AROM is increased and pain is less. He reports that he is sleeping better and this pleases him. He reports compliance with HEP 3x day. He reports that he is having less pain today than last session. He attributes this to weather. Pain: Pain Pain Level: 2 Pain Location: Shoulder - Left Description: Aching;Dull Frequency: Intermittent (He reports that sitting in the lobby he was pain-free today.) Post Treatment Pain Post Treatment Pain Level: No Change Post Treatment Pain Location: Shoulder - Left Post Treatment Symptoms: After session today, pt denied any increase in pain OBJECTIVE MEASURES WITH LEVEL OF FUNCTION: UE AROM L UE AROM: seated L Shoulder Extension: 56 Degrees L Shoulder Flex: 93 Degrees L Shoulder ABduction: 65 Degrees L Shoulder Internal Rotation (Functional): 20 cm less than R reaching behind back L Shoulder External Rotation (Functional): 7cm less than R reaching behind head TREATMENT: Therapeutic Exercise: 1: [employer] StepOne seat #12 x5 minutes (Subjective taken and patient updated his condition and response to treatment so far.) 2: seated L shoulder flexion jam stretch 2x10 3: standing L shoulder IR stretch behind back with rope and jam 2x10 4: supine wand AAROM for L shoulder flexion 2x10 5: supine wand AAROM ER with elbows flexed 90 degrees 2x10 6: supine wand AAROM for L shoulder abduction 2x10 7: seated tabletop flexion 30 second hold at end range x3 reps 8: seated tabletop stretch in scaption direction 3x30 seconds 9: seated stretch for L shoulder ER 30 second hold x3 elbow flexed 90 degrees. Skilled Intervention: Patient was educated in proper exercise technique and purpose for exercises. Skilled judgment was provided in selection of appropriate interventions. Correct performance of therapeutic exercises was facilitated with verbal, visual and tactile cuing. Patient education as noted. Manual Therapy: 1: Supine joint mobilizations for L shoulder: all were done with 3 rounds of oscillations followed by advancement of segment to new restriction and then oscillations again before further advancement of segment. These were all done very gently and based on pt tolerance. Joint glides as follows: flexion=posterior and inferior, abduction=inferior and ER=anterior. 2 rounds for each motion. Skilled Intervention: Manual skills to improve joint mobility, ROM, and decrease pain. Utilized anatomy knowledge of the therapist, and assessment of patient's response to intervention. Billing Therapeutic Exercise Treatment Minutes: 40 Manual TherapyTreatment Minutes: 15 Total Treatment Time Minutes (timed/untimed): 55 Edgar Duque PT documented in this encounter [facility] 07-12-2021 History of Present illness Narrative Episode Visit Count: 4 Therapist That Will Oversee The Plan Of Care: Edgar Duque PT Start of Care Date: 07/05/21 Onset Date: 03/15/21 Plan of Care Certification Date: 07/05/21 Next Certification Due Date: 08/30/21 Patient Identified by Name and Date of : Yes REHABILITATION AND SPORTS THERAPY PHYSICAL THERAPY TREATMENT NOTE ASSESSMENT: Summer Vizcarra tolerated the session with decreased pain. He demonstrated improvements in tolerance for exercises, increase AROM and AAROM . He is sleeping better at night and can now tie his shoes again with less pain. He had difficulty with increase aching today which he feels is from the rainy day.. The patient will continue to benefit from ongoing skilled physical therapy to progress toward set goals. PLAN FOR NEXT VISIT: Continue with therex and possibly joint mobilizations. Focus on ROM of L shoulder without a severe increase in pain. SUBJECTIVE: Patient Reason for Visit: Patient reports the left shoulder feels worse today. He feels it is from the rainy weather. He reports had 1 episode of increase pain last visit and felt better after he massaged the shoulder. He reports he is able to sleep better since starting therapy. Pain: Pain Pain Level: 8 Pain Location: Shoulder - Left Description: Aching (pulsating pain and intermittent popping left shoulder) Frequency: Continuous Post Treatment Pain Post Treatment Pain Level: 6 Post Treatment Pain Location: Shoulder - Left Post Treatment Pain Description: Aching OBJECTIVE MEASURES WITH LEVEL OF FUNCTION: UE AROM L Shoulder Flex: 88 Degrees L Shoulder Internal Rotation (Functional): sacrum (reaching behind back) UE PROM L Shoulder Flex: 107 Degrees (AAROM with jam assist) TREATMENT: Therapeutic Exercise: 1: [employer] StepOne seat #12 x5 minutes (Subjective taken and discussed exercises during this time.) 2: seated L shoulder flexion jam stretch 3x10 3: standing L shoulder IR stretch behind back with rope and jam 3x10 4: supine wand AAROM for L shoulder flexion 2x10 5: supine wand AAROM ER with elbows flexed 90 degrees 2x10 6: supine wand AAROM for L shoulder abduction 2x10 7: Seated tabletop flexion 2-3 second hold at end range 3x10 reps 8: Seated tabletop scaption 2x10 9: seated stool stretch for L shoulder ER 2-3 second hold 2x10 elbow flexed 90 degrees. Skilled Intervention: Patient was educated in proper exercise technique and purpose for exercises. Skilled judgment was provided in selection of appropriate interventions. Correct performance of therapeutic exercises was facilitated with verbal and visual cuing. Manual Therapy: 1: Supine left shoulder oscillations 2x10. Flexion joint glides posterior and inferior 2x10, Abduction joint glides inferior 2x10 reps. Skilled Intervention: Manual skills to improve joint mobility, ROM, and decrease pain. Utilized anatomy knowledge of the therapist, and assessment of patient's response to intervention. Billing Therapeutic Exercise Treatment Minutes: 32 Manual TherapyTreatment Minutes: 8 Total Treatment Time Minutes (timed/untimed): 40 RACHEL Potter PT documented in this encounter [facility] 07-07-2021 History of Present illness Narrative Episode Visit Count: 3 Therapist That Will Oversee The Plan Of Care: Edgar Duque PT Start of Care Date: 07/05/21 Onset Date: 03/15/21 Plan of Care Certification Date: 07/05/21 Next Certification Due Date: 08/30/21 Patient Identified by Name and Date of : Yes REHABILITATION AND SPORTS THERAPY PHYSICAL THERAPY TREATMENT NOTE ASSESSMENT: Summer Vizcarra tolerated the session with increase ROM and reaching ability without an increase in pain. He demonstrated difficulty with pain at end range and improvements in ROM in L shoulder with improved reaching ability for tasks such as tieing shoes. The patient will continue to benefit from ongoing skilled physical therapy to progress toward set goals. PLAN FOR NEXT VISIT: Continue with therex and possibly joint mobilizations. Focus on ROM of L shoulder without a severe increase in pain. SUBJECTIVE: Patient Reason for Visit: Pt reports compliance with HEP 3x day since evaluation. He reports significant pain and stiffness with his first set of home exercises in the morning. He reports noticeably less stiffness with other two sets of HEP in afternoon and evening. Overall he denies any significant changes since evaluation 07/05/21. Pain: Pain Pain Level: 2 Pain Location: Shoulder - Left Description: Aching Frequency: Continuous Post Treatment Pain Post Treatment Pain Level: No Change (2/10) Post Treatment Pain Location: Shoulder - Left Post Treatment Pain Description: (same) Post Treatment Symptoms: During therex and joint mobilizations, pt reported an increase in pain but after session and as he was leaving, he denied any increase in pain from start of session. After session pt reported improved reaching ability. He was able to reach to tie his shoes after session and before today's appointment he was unable to do this. OBJECTIVE MEASURES WITH LEVEL OF FUNCTION: TREATMENT: Therapeutic Exercise: 1: [employer] StepOne seat #12 x5 minutes (Subjective collected. Pt updated therapist on his condition and response to treatment so far.) 2: supine wand AAROM for L shoulder flexion 2x10 3: supine wand AAROM ER with elbows flexed 90 degrees 2x10 4: supine wand AAROM for L shoulder abduction 2x10 5: seated stool stretch for L shoulder flexion 2x10 with 2 second hold 6: seated L shoulder flexion jam stretch 3x10 7: seated stool stretch for L shoulder flexion 3x30 seconds 8: seated stool stretch for L shoulder abduction 2x10 9: seated stool stretch for L shoulder ER 2x10 elbow flexed 90 degrees. 10: *standing L shoulder IR stretch behind back with rope and jam 3x10 Skilled Intervention: Patient was educated in proper exercise technique and purpose for exercises. Reviewed and educated patient on additions/changes for home exercise program as above (*). Skilled judgment was provided in selection of appropriate interventions. Correct performance of therapeutic exercises was facilitated with verbal, visual and tactile cuing. Patient education as noted. Manual Therapy: 1: Supine joint mobilizations for L shoulder: all were done with 3 rounds of oscillations followed by advancement of segment to new restriction and then oscillations again before further advancement of segment. These were all done very gently and based on pt tolerance. Joint glides as follows: flexion=posterior and inferior, abduction=inferior and ER=anterior Skilled Intervention: Manual skills to improve joint mobility, ROM, and decrease pain. Utilized anatomy knowledge of the therapist, and assessment of patient's response to intervention. Billing Therapeutic Exercise Treatment Minutes: 37 Manual TherapyTreatment Minutes: 8 Total Treatment Time Minutes (timed and untimed codes) : 45 Edgar Duque PT documented in this encounter [facility] 07-05-2021 History of Present illness Narrative Episode Visit Count: 2 Therapist That Will Oversee The Plan Of Care: Edgar Duque PT Start of Care Date: 07/05/21 Onset Date: 03/15/21 Plan of Care Certification Date: 07/05/21 Next Certification Due Date: 08/30/21 Patient Identified by Name and Date of : Yes REHABILITATION AND SPORTS THERAPY PHYSICAL THERAPY EVALUATION PLAN OF CARE: Assessment: Summer Vizcarra presents with diagnosis of L shoulder adhesive capsulitis that interferes with sleeping;reaching behind back;reaching overhead;dressing;use hand with arm at shoulder level;driving . He presents with impairments in ADL's, flexibility, independence in exercise, joint mobility, overall function, range of motion, strength and tissue tenderness. Prognosis for therapy is Good due to: current objective clinical presentation;within-session changes;Prognosis may be limited due to chronic nature of impairments;coping skills;limited tolerance to activity. He will benefit from skilled therapy services to meet the goals established for this plan of care as noted below. Goals for Episode of Care: created on 07/05/21 through 08/30/21 [place] in home exercise program. Patient will decrease pain rating by 2 points to meet minimal clinical important difference for numeric pain rating scale. Patient will increase active ROM of L shoulder to symmetrical and WFL to allow pt to to improve performance of ADLs. Patient will demonstrate increase in L shoulder strength to 5/5 during manual muscle testing in order to improve function for prior functional tasks. Perform sleeping, reaching and dressing without pain. Patient Goals: regain use of L UE and improve sleep Planned Interventions, Frequency, and Duration: Current Frequency: 2x/week Duration: 8 weeks Total Number of Visits Planned: 16 Planned Treatment Interventions: Therapeutic exercise (19533);Manual therapy (36994);Therapeutic activities (23752);Self-prison management (53105);Patient/Family/Caregiver Education;Body Mechanics Training;Neuromuscular re-education (99747) PLAN FOR NEXT VISIT: Review, correct and progress HEP to tolerance. Continue with active, passive and active assisted therex to address ROM and pain in L shoulder. Eventually, strength will need addressed. Consider the use of manual therapy including joint mobilizations if patient tolerates. Use pain as a guide and review this with patient. Patient demonstrates good understanding of plan of care and treatment. The above goals and plan of care were discussed and agreed upon by patient/family. SUBJECTIVE: Sumemr Vizcarra is a 71 year old male seen today for constant pain in lateral aspect of L shoulder and upper arm that varies in intensity. He reports that pain began in L shoulder in March of 2021 and pain has gotten progressively worse with progressive loss of motion. He reports that pain began when he was reaching overhead to retrieve coffee out of cupboard in March 2021. He reports that he first mentioned it to PCP June 10 and his PCP referred him to Dr. Huertas 06/25/2021. He was scheduled to have LEXI 07/01/21 but L bundle branch block forced this to be canceled. He received an injection in L shoulder 07/01/21 but this did not provide any relief. His LEXI has been put on hold until he can receive cardiac clearance. Dr. Huertas has recommended PT in the meantime. Patient Goals: regain use of L UE and improve sleep Functional Limitations: sleeping;reaching behind back;reaching overhead;dressing;use hand with arm at shoulder level;driving Prior Level of Function: Independent without limitations Relevant History Right or Left Handed: Right Employment: Retired Home Environment Patient Lives With: Self/Alone Intake Information: Prescription present Previous Treatment: Injections Pain: Pain Pain Level: 5 Pain Location: Shoulder - Left;Upper Arm - Left Description: Aching Frequency: Continuous (constant pain that varies in intensity) Detailed Pain Score: Yes Worst Pain Level: 10 Average Pain Level: 5 Best Pain Level: 2 Post Treatment Pain Post Treatment Pain Level: No Change Post Treatment Pain Location: Shoulder - Left Post Treatment Pain Description: (no change in pain level) Post Treatment Symptoms: After session today, pt reported that his pain was unchanged but that he felt his ROM was better in L shoulder. PROMIS Scales T-scores: mean of general population = 50. 5 points is clinically meaningfully difference Percentiles provide an indication of how the patient's score ranks in relation to the general population. Higher percentile rankings indicate better function/quality of life. 50th percentile is the average of the general population and indicates half of respondents had a worse score. T-scores: mean of general population = 50. 5 points is clinically meaningfully difference Percentiles provide an indication of how the patient's score ranks in relation to the general population. Higher percentile rankings indicate better function/quality of life. 50th percentile is the average of the general population and indicates half of respondents had a worse score. OBJECTIVE MEASURES WITH LEVEL OF FUNCTION: Posture / Alignment Posture: Fair Shoulder Observations L Shoulder Presents with: Atrophy Atrophy: L supraspinatus L Shoulder Palpation Tenderness: (sub acromial region) UE AROM R UE AROM: seated L UE AROM: seated R Shoulder Extension: 99 Degrees R Shoulder Flex: 143 Degrees R Shoulder ABduction: 166 Degrees L Shoulder Extension: 44 Degrees L Shoulder Flex: 72 Degrees L Shoulder ABduction: 41 Degrees L Shoulder Internal Rotation (Functional): 38cm less than R reaching behind back L Shoulder External Rotation (Functional): 10cm less than R reaching behind head UE PROM L UE PROM: AROM and PROM are equally limited. Pain restricts both AROM and PROM and PROM does not exceed AROM and this confirms adhesive capsulitis. Later during therex completion, pt reported that UE and Cervical Strength L UE Strength: MMT deferred secondary patient's pain level with active and passive ROM. Despite deferral of MMT, strength will need addressed to facilitate a return to prior functional level. Special Tests - Shoulder Shoulder Special Tests: Comments Shoulder Special Tests Comments: Special tests were limited by extremely limited ROM in L shoulder. Education: Education Learning Preferences: Demonstration;Explanation;Perfor lacie;Printed Materials Barriers: None Learning/educational needs: Plan of Care;Home exercise program;Posture;Body Mechanics Education Provided: Yes, see treatment interventions for education provided Education Provided To: Patient Education Mode/Type: Demonstration;Explanation/Discus luz maria;Literature/Printed Materials;Performance Response to Education/Teach Back: States/Identifies;Return Demonstration;Requires Review/Additional Education TREATMENT: PT Treatment Interventions: Therapeutic Exercise Evaluation Therapeutic Exercise: 1: Pt was educated extensively on the anatomy of L shoulder, likely source of symptoms and rationale for proposed treatment plan. Pictures were used to clarify all education. He was educated on the process of subacromial impingement and how this can lead to adhesive capsulitis. Pictures were used to show the capsule of shoulder and its role in this process. Pt was repeatedly instructed to stop any exercise or activity that causes extreme pain. He was advised that stretching will be painful but this should not be excessive. He was repeatedly reminded to keep therex as passive as possible for L shoulder, especially stretching. 2: *supine wand AAROM for L shoulder flexion 2x10 3: *supine wand AAROM ER with elbows flexed 90 degrees 2x10 4: *supine wand AAROM for L shoulder abduction 2x10 5: *seated stool stretch for L shoulder flexion 2x10 with 2 second hold 6: *seated L shoulder flexion jam stretch 2x10 and jam provided for home use. Skilled Intervention: Patient was educated in proper exercise technique and purpose for exercises. Reviewed and educated patient on additions/changes for home exercise program as above (*). Skilled judgment was provided in selection of appropriate interventions. Provided written instruction for home exercise program to facilitate proper performance and compliance. Correct performance of therapeutic exercises was facilitated with verbal, visual and tactile cuing. Patient education as noted. Billing * Evaluation Moderate Complexity: 1 Unit Therapeutic Exercise Treatment Minutes: 30 Total Treatment Time Minutes (timed and untimed codes) : 60 Edgar Duque PT documented in this encounter [facility] 07-02-2021 History of Present illness Narrative When patient arrived for his appointment today, he reported that his L shoulder LEXI was canceled yesterday because of a previously undiagnosed cardiac issue. Pt reports that he has to see a marketing reps sports and entertainment before his L shoulder LEXI can be rescheduled. Pt reports that he received a cortisone injection in his L shoulder yesterday but he was not sure if he was supposed to receive PT or not. Therapist called referring physician's office to clarify and staff there agreed with therapist that therapy would likely be on hold until the LEXI could be rescheduled. Pt did not start PT today and was told to call after he has LEXI and is referred back to PT. Later this afternoon, referring physician's office called back to report that physician is not sure if LEXI will be able to be rescheduled and therefore he did want patient to start PT now to see if gains can be made without LEXI. Pt will be contacted and rescheduled to start PT at this office next week. Edgar Duque PT No charge for time documented in this encounter [facility] Evaluation note There may be informa tion available, but it has not been provided by the sender. [facility] Work Phone: documented in this encounter [facility] note* Diagnosis Adhesive capsulitis of left shoulder- Primary Adhesive capsulitis of shoulder [facility] Diagnosis Adhesive capsulitis of left shoulder- Primary Adhesive capsulitis of shoulder [facility] Diagnosis Adhesive capsulitis of left shoulder- Primary Adhesive capsulitis of shoulder documented in this encounter [facility] note* Diagnosis Adhesive capsulitis of left shoulder- Primary Adhesive capsulitis of shoulder documented in this encounter [facility] note* Diagnosis Adhesive capsulitis of left shoulder- Primary Adhesive capsulitis of shoulder documented in this encounter [facility] note* Diagnosis Adhesive capsulitis of left shoulder- Primary Adhesive capsulitis of shoulder [facility] Diagnosis Adhesive capsulitis of left shoulder- Primary Adhesive capsulitis of shoulder documented in this encounter [facility] note* Diagnosis Adhesive capsulitis of left shoulder- Primary Adhesive capsulitis of shoulder documented in this encounter [facility] note* Diagnosis Adhesive capsulitis of left shoulder- Primary Adhesive capsulitis of shoulder documented in this encounter [facility] note* Diagnosis Adhesive capsulitis of left shoulder- Primary Adhesive capsulitis of shoulder documented in this encounter [facility] note* Diagnosis Adhesive capsulitis of left shoulder- Primary Adhesive capsulitis of shoulder documented in this encounter [facility] note* Diagnosis Adhesive capsulitis of left shoulder- Primary Adhesive capsulitis of shoulder [facility] Diagnosis Adhesive capsulitis of left shoulder- Primary Adhesive capsulitis of shoulder [facility] Work Phone: Summary Purpose Family History No Family History Records FoundThere may be information available, but it has not been provided by the sender.No Family History Records FoundNo Family History Records Found Advance Directives No Advanced Directives Records FoundThere may be information available, but it has not been provided by the sender.No Advanced Directives Records FoundNo Advanced Directives Records Found Chief Complaint Chief Complaint Description Start Date left shoulder pain Preliminary chief co mplaint data, not yet signed by the author as of Reason for Referral Specialty Diagnoses / Procedures Referred By Contac t Referred To Contact REHAB AND SPORTS THERAPY INS Diagnoses Adhesive capsulitis of left shoulder Procedures PT REHAB FOLLOW UP ORDER THERAPEUTIC EXERCISES RE, EA 15 MIN. Pt [facility] [address] [place] [address] [facility] [address] [place] [address] Referral ID Status Reason Start Date Expiration Date Visits Requested Visits Authorized [id number] Pending Review PCP Requested Referral Auto-Generate d Referral 07/05/2021 10/03/2021 1 1 Referral ID Status Reason Start Date Expiration Date Visits Requested Visits Authorized [id number] Pending Review PCP Requested Referral Auto-Generate d Referral 07/28/2021 10/26/2021 1 1 Referral ID Status Reason Start Date Expiration Date Visits Requested Visits Authorized [id number] Pending Review PCP Requested Referral Auto-Generate d Referral 08/26/2021 11/24/2021 1 1 Additional Source Comments (unrecognized sect ion and content) No Status Records FoundNo Status Records FoundNo Status Records Found INFORMATION SOURCE (unrecogn ized section and content) DATE CREATED AUTHOR AUTHOR'S ORGANIZ ATION 11/17/2022 [facility] DATE CREATED AUTHOR AUTHOR'S ORGANIZ ATION 02/14/2023 [facility] Reason for Visit (unrecogniz ed section and content) Specialty Diagnoses / Procedures Referred By Mildred t Referred To Contact REHAB AND SPORTS THERAPY INS Diagnoses Adhesive capsulitis of left shoulder M75.02 Procedures PT REHAB FOLLOW UP ORDER THERAPEUTIC EXERCISES RE, EA 15 MIN. THER PX 1/> AREAS EACH 15 MIN NEUROMUSC REEDUCA MANUAL THERAPY TQS 1/> REGIONS EACH 15 MINUTES THERAPEUT ACTVITY DIRECT PT CONTACT EACH 15 MIN SELF-CARE/HOME MGMT TRAINING EACH 15 MINUTES 40825 / 99035 / [id number] / [id number] / [id number] Hyacinth Muller [address] [address] [facility] [place] [address] [place] [address] Referral ID Status Reason Start Date Expiration Date Visits Requested Visits Authorized [id number] Authorized PCP Requested Referral Auto-Generate d Referral 07/05/2021 12/01/2021 20 20 Reason For Visit Description Start Date New - 1st visit with practice Preliminary reason f or visit data, not yet signed by the author as of left shoulder pain Reason Comments Appointment Cancelled Specialty Diagnoses / Procedures Referred By Mildred solano Referred To Contact Physical Therapy / PHYSICAL THERAPY Diagnoses Adhesive capsulitis of left shoulder Adhesive capsulitis of Left shoulder (ICD-M75.02) (LON71-R61.02) Procedures PHYSICAL THERAPY EVALUATION HIGH COMPLEX 45 MINS NEW RS PT ORTH Hyacinth [address] [place] [address] Edgar Duque PT [address] [place] [address] Referral ID Status Reason Start Date Expiration Date Visits Re quested Visits Authorized [id number] Closed 07/02/2021 10/31/2021 1 1 Reason Comments PT Eval Specialty Diagnoses / Procedures Referred By Mildred t Referred To Contact Physical Therapy / PHYSICAL THERAPY Diagnoses Adhesive capsulitis of left shoulder Adhesive capsulitis of Left shoulder (ICD-M75.02) (EBT52-Q51.02) Procedures PHYSICAL THERAPY EVALUATION HIGH COMPLEX 45 MINS NEW RS PT ORTH Hyacinth [address] [place] [address] Edgar Duque PT [address] [place] [address] Reason Comments Physical Therapy Reason Comments PT Progress Note Specialty Diagnoses / Procedures Referred By Mildred t Referred To Contact [facility]AB AND SPORTS THERAPY INS Diagnoses Adhesive capsulitis of left shoulder M75.02 Procedures PT REHAB FOLLOW UP ORDER THERAPEUTIC EXERCISES RE, EA 15 MIN. THER PX 1/> AREAS EACH 15 MIN NEUROMUSC REEDUCA MANUAL THERAPY TQS 1/> REGIONS EACH 15 MINUTES THERAPEUT ACTVITY DIRECT PT CONTACT EACH 15 MIN SELF-CARE/HOME MGMT TRAINING EACH 15 MINUTES 32425 / [id number] / [id number] / [id number] / [id number] Hyacinth Muller [facility] [address] [place] [address] [facility] [place] [address] Source Comments (unrecognize d section and content) In the event this informatio n is protected by the Federal Confidentiality of Alcohol and Drug Abuse Patient Records regulations: The Federal rules restrict any use of the information to criminally investigate or prosecute any alcohol or drug abuse patient.[facility] the event this information is protected by the Federal Confidentiality of Alcohol and Drug Abuse Patient Records regulations: The Federal rules restrict any use of the information to criminally investigate or prosecute any alcohol or drug abuse patient.[facility] NorthIn the event this information is protected by the Federal Confidentiality of Alcohol and Drug Abuse Patient Records regulations: The Federal rules restrict any use of the information to criminally investigate or prosecute any alcohol or drug abuse patient.[facility] NorthIn the event this information is protected by the Federal Confidentiality of Alcohol and Drug Abuse Patient Records regulations: The Federal rules restrict any use of the information to criminally investigate or prosecute any alcohol or drug abuse patient.[facility] NorthIn the event this information is protected by the Federal Confidentiality of Alcohol and Drug Abuse Patient Records regulations: The Federal rules restrict any use of the information to criminally investigate or prosecute any alcohol or drug abuse patient.[facility] NorthIn the event this information is protected by the Federal Confidentiality of Alcohol and Drug Abuse Patient Records regulations: The Federal rules restrict any use of the information to criminally investigate or prosecute any alcohol or drug abuse patient.[facility] NorthIn the event this information is protected by the Federal Confidentiality of Alcohol and Drug Abuse Patient Records regulations: The Federal rules restrict any use of the information to criminally investigate or prosecute any alcohol or drug abuse patient.[facility] [place] NorthIn the event this information is protected by the Federal Confidentiality of Alcohol and Drug Abuse Patient Records regulations: The Federal rules restrict any use of the information to criminally investigate or prosecute any alcohol or drug abuse patient.[facility] [place] NorthIn the event this information is protected by the Federal Confidentiality of Alcohol and Drug Abuse Patient Records regulations: The Federal rules restrict any use of the information to criminally investigate or prosecute any alcohol or drug abuse patient.[facility] NorthIn the event this information is protected by the Federal Confidentiality of Alcohol and Drug Abuse Patient Records regulations: The Federal rules restrict any use of the information to criminally investigate or prosecute any alcohol or drug abuse patient.[facility] NorthIn the event this information is protected by the Federal Confidentiality of Alcohol and Drug Abuse Patient Records regulations: The Federal rules restrict any use of the information to criminally investigate or prosecute any alcohol or drug abuse patient.[facility] [place] NorthIn the event this information is protected by the Federal Confidentiality of Alcohol and Drug Abuse Patient Records regulations: The Federal rules restrict any use of the information to criminally investigate or prosecute any alcohol or drug abuse patient.[facility] NorthIn the event this information is protected by the Federal Confidentiality of Alcohol and Drug Abuse Patient Records regulations: The Federal rules restrict any use of the information to criminally investigate or prosecute any alcohol or drug abuse patient.[facility] NorthIn the event this information is protected by the Federal Confidentiality of Alcohol and Drug Abuse Patient Records regulations: The Federal rules restrict any use of the information to criminally investigate or prosecute any alcohol or drug abuse patient.[facility] [place] NorthIn the event this information is protected by the Federal Confidentiality of Alcohol and Drug Abuse Patient Records regulations: The Federal rules restrict any use of the information to criminally investigate or prosecute any alcohol or drug abuse patient.[facility] [place] NorthIn the event this information is protected by the Federal Confidentiality of Alcohol and Drug Abuse Patient Records regulations: The Federal rules restrict any use of the information to criminally investigate or prosecute any alcohol or drug abuse patient.[facility] [place] NorthIn the event this information is protected by the Federal Confidentiality of Alcohol and Drug Abuse Patient Records regulations: The Federal rules restrict any use of the information to criminally investigate or prosecute any alcohol or drug abuse patient.[facility] [place] NorthIn the event this information is protected by the Federal Confidentiality of Alcohol and Drug Abuse Patient Records regulations: The Federal rules restrict any use of the information to criminally investigate or prosecute any alcohol or drug abuse patient.[facility] [place] NorthIn the event this information is protected by the Federal Confidentiality of Alcohol and Drug Abuse Patient Records regulations: The Federal rules restrict any use of the information to criminally investigate or prosecute any alcohol or drug abuse patient.[facility] [place] NorthIn the event this information is protected by the Federal Confidentiality of Alcohol and Drug Abuse Patient Records regulations: The Federal rules restrict any use of the information to criminally investigate or prosecute any alcohol or drug abuse patient.[facility] FOR RECORDS PERTAINING TO PATIENTS WHO ARE OR HAVE BEEN ENROLLED IN A CHEMICAL DEPENDENCY/SUBSTANCEABUSE PROGRAM, SOME INFORMATION MAY BE OMITTED. This clinical summary was aggregated from multiple sources. Caution should be exercised in using it in the provision of clinical care. This summary normalizes information from multiple sources, and as a consequence, information in this document may materially change the coding, format and clinical context of patient data. In addition, data may be omitted in some cases. CLINICAL DECISIONS SHOULD BE BASED ON THE PRIMARY CLINICAL RECORDS. [facility] [employer] [facility]. provides no warranty or guarantee of the accuracy or completeness of information in this document.
[2023-04-18 08:20] VITALS: BP 116/76; PULSE 54; RESP 16; O2SAT 96
[2023-04-18 08:25] LABS: Differential Indicated SCAN CRITERIA MET
[2023-04-18 08:26] LABS: Differential Comment SCANNED
[2023-04-18] MEDS: Mag Hydrox/Al Hydrox/Simeth 30 ML UDC PO (08:41)
--- NOTE | 2023-04-18 08:53 | EKG12_ITS ---
Test Reason : CP Blood Pressure : / mmHG Vent. Rate : 059 BPM Atrial Rate : 059 BPM P-R Int : 162 ms QRS Dur : 140 ms QT Int : 456 ms P-R-T Axes : 071 025 115 degrees QTc Int : 451 ms Sinus bradycardia with sinus arrhythmia Non-specific intra-ventricular conduction block Minimal voltage criteria for LVH, may be normal variant ( Shaji product ) Cannot rule out Anteroseptal infarct , age undetermined Abnormal ECG Confirmed by MONI GERBER, CY ([id number]), newspaper copy editor HAILE FOWLER ([id number]) on 04/19/2023 9:24:29 AM Referred By: CJ Confirmed By:CY MONTENEGRO MD
[2023-04-18 09:43] LABS: Reflex Troponin-HS? (from REC) Y
[2023-04-18 10:12] LABS: Troponin-I HS 12 pg/mL (3.0-78.0)
[2023-04-18 10:13] VITALS: BP 119/64; PULSE 49; RESP 16; O2SAT 98; O2SAT 99
[2023-04-18 10:53] VITALS: BP 110/78; PULSE 50; RESP 16; TEMP 36.4; O2SAT 98
== END 2023-04-18 10:54 | disposition home or self-care (01) ==
PROVIDERS: Emergency Provider Student in an Organized Health Care Education/Training Program; PCP Internal Medicine; Visit Provider Student in an Organized Health Care Education/Training Program
DX: R07.9 Chest pain, unspecified (principal); R42 Dizziness and giddiness; Z87.891 Personal history of nicotine dependence; Z95.5 Presence of coronary angioplasty implant and graft; R10.13 Epigastric pain; Z95.1 Presence of aortocoronary bypass graft; I10 Essential (primary) hypertension; E78.5 Hyperlipidemia, unspecified
CPT/HCPCS: 71045; 80048; 84484; 85025; 93005; 99285; A4216

== ENCOUNTER 2024-03-21 07:46 | Emergency (ER) | payer MEDICARE, SELFPAY ==
[2024-03-21 07:49] VITALS: BP 157/88; PULSE 51; RESP 16; TEMP 36.6; O2SAT 100; BMI 18.3
--- NOTE | 2024-03-21 08:03 | CT_ITS ---
STUDY: CT BRAIN WITHOUT CONTRAST REASON FOR EXAM: Male, 73 years old. Head injury RADIATION DOSAGE (If Supplied By Facility): CTDIvol = ( 44.99 ) mGy, DLP = ( 779.24 ) mGycm TECHNIQUE: Transaxial CT imaging of the brain was performed without administration of intravenous contrast material. Individualized dose optimization techniques were used for this CT. COMPARISON: No relevant priors. FINDINGS: Normal soft tissue structures. Normal calvarium. There is mild cerebral atrophy with widening of the extra-axial spaces and ventricular dilatation. There are areas of decreased attenuation within the white matter tracts of the supratentorial brain, consistent with microvascular disease changes. Asymmetrical prominence of the right CSF space overlying the right frontal parietal lobes. This may represent changes secondary to a chronic subdural hematoma. Normal basal ganglia and thalami. Normal brainstem. Normal cerebellum. There is no intracranial hemorrhage. There are no findings of an acute ischemic infarction. Atherosclerotic calcification of the cavernous portions of the internal carotid arteries bilaterally. Opacification of the left maxillary sinus. Partial opacification of the ethmoid sinuses. Mucosal thickening of the right sphenoid sinus. CT/Brain/Head without Contrast IMPRESSION: Chronic involutional changes of the brain. 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 Sinusitis. Electronically Signed: Jan Camargo MD at 8:56 EST ,
--- NOTE | 2024-03-21 08:03 | CT_ITS ---
STUDY: CT CERVICAL SPINE WITHOUT CONTRAST REASON FOR EXAM: Male, 73 years old. Neck pain RADIATION DOSAGE (If Supplied By Facility): CTDIvol = ( 14.97 ) mGy, DLP = ( 335.51 ) mGycm TECHNIQUE: High resolution transaxial imaging was performed without contrast material. Sagittal and coronal images were reconstructed. Individualized dose optimization techniques were used for this CT. COMPARISON: None FINDINGS: Normal craniovertebral junction. There are degenerative changes of the anterior atlantoaxial articulation. Normal odontoid process. There is straightening of the normal cervical lordosis. Normal vertebral bodies and posterior osseous elements. C2-3: Normal endplates. Normal disc height and morphology. Normal central canal and intervertebral neuroforamina. C3-4: Facet joint osteoarthritis and hypertrophy on the left side with uncovertebral arthrosis. Marked degree of left neural foraminal stenosis. Mild degree of right neural foraminal stenosis. C4-5: Anterior spondylosis. Mild degree of disc space narrowing. No acute abnormality is seen. C5-6: Marked degree of disc space narrowing. Spondylosis. Uncovertebral arthrosis. Bilateral neural foraminal stenosis. C6-7: Mild degree of disc space narrowing. No significant abnormality is seen. C7-T1: Normal endplates. Normal disc height and morphology. Normal central canal and intervertebral neuroforamina. Atherosclerotic plaque formation of the carotid bifurcations bilaterally. CT/Spine Cervical without Contras IMPRESSION: Multilevel degenerative changes, as described above. Electronically Signed: Jan Camargo MD at 8:58 EST ,
--- NOTE | 2024-03-21 08:04 | EDS_ITS ---
HPI History of Present Illness Chief Complaint: Other, Pain/Inj Detail of Chief Complaint: Neck pain Informant: patient Narrative Narrative: Patient presents emergency department complaint of neck pain that initially started yesterday morning. He woke up with some neck stiffness. This morning pain more severe. Pain mostly in the right side of his neck but at times will radiate to his head. 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 No loss of consciousness. He did not think much of it and walked home. Patient does describe some paresthesias in his hands intermittently but he states that he had that prior to the head injury as well. He denies weakness in the extremities. He denies rec ent illness. He denies chest pain or shortness of breath. PFSH [facility] Medical History HLD (hyperlipidemia) HTN (hypertension) Home Medications ?Medication ?Instructions ?Recorded ?Last Taken ?Type diazepam 5 mg tablet (Valium) 5 mg PO BID PRN muscle spasm #10 03/21/24 Unknown Rx tabs hydrocodone-acetaminophen 5-325mg 1 tab PO Q4H PRN PRN Pain 2 days 03/21/24 Unknown Rx 5mg-325mg #15 TABLETS naproxen 500 mg tablet (Naprosyn) 500 mg PO BID PRN pain #20 tabs 03/21/24 Unknown Rx Allergy/AdvReac Type Severity Reaction Status Date / Time No Known Allergies Allergy Verified 03/21/24 07:52 Surgical History Hx of CABG Social History Smoking Status: Former smoker ROS ROS ED Review of Systems ROS Unobtainable: other Constitutional Constitutional ED: Reports lethargy; Denies chills, fever(s), sweats or weight loss Eyes Eyes: Denies blurry vision, change in vision or diplopia ENT ENT ED: Denies rhinorrhea or sore throat Cardiovascular Cardiovascular: Denies chest pain, orthopnea or racing heartbeat Respiratory/Chest Respiratory/Chest: Denies cough, dyspnea, dyspnea on exertion, orthopnea or sputum Gastrointestinal Gastrointestinal: Denies abdominal pain, diarrhea, nausea or vomiting Genitourinary Genitourinary ED: Denies dysuria, hematuria or urinary frequency Musculoskeletal Musculoskeletal: Reports neck pain; Denies arthralgias, back pain or myalgias Integumentary Denies abscess, Abrasions or rash Neurologic Neurologic: Reports headache(s); Denies weakness Psychiatric Psychiatric: Denies anxiety, depression or suicidal thoughts Endocrine Endocrinology: Denies polydipsia, polyphagia or polyuria Hematologic/Lymphatic Hematologic/Lymphatic: Denies easy bleeding, easy bruising or lymphadenopathy Allergic/Immunologic Allergic/Immunologic ED: Denies mouth swelling, tongue swelling or urticaria EXAM Physical Exam Const Vital Signs: 03/21/24 07:49 03/21/24 07:52 Temperature 97.9 F Temperature Source Oral Pulse Rate 51 L Respiratory Rate 16 Respiratory Effort Normal Non-Labored Respiratory Pattern Normal Blood Pressure 157/88 H Blood Pressure Mean 111 Pulse Ox 100 Oxygen Delivery Method Room Air Positive well nourished and well developed General Appearance ED: well developed and NAD HEENT Reports TM's clear and moist mucous membranes normocephalic and atraumatic; Negative for trauma or tenderness Tympanic Membrane ED: Yes TM's clear Eyes PERRL and EOMs intact bilaterally General Eye ED: Negative for pale conjunctiva or scleral icterus Neck no lymphadenopathy, supple and no JVD Neck Narrative: Some tenderness to palpation over the cervical spine diffusely. Pain with range of motion in the neck. Most of the tenderness seems to be located over the upper right cervical paraspinal musculature near the base of the skull. Normal strength in the upper and lower extremities on exam. Normal deep tendon reflexes at the bicep, tricep, and brachioradialis bilaterally. General: tenderness Chest Wall inspection of chest normal and palpation of chest normal Chest: Negative for tenderness Resp normal respiratory effort and clear to auscultation bilaterally Effort and Inspection: Negative for respiratory distress or pain with movement Auscultation: Negative for rhonchi, wheezes or diminished lung sounds Cardio regular rate, regular rhythm, S1 normal heart sound, S2 normal heart sound and no murmurs Peripheral Pulses: pulses 2+ throughout GI normal to inspection, nondistended, normoactive bowel sounds, soft to palpation, non-tender, non-distended and no masses Back/Spine no CVA tenderness and no thoracic nor lumbar tenderness Extremity normal to inspection General Extremety ED: Negative for edema General Extremity: Negative for edema Neuro oriented x3, CN's II-XII intact bilaterally, no sensory deficits noted and gait normal Sensorium / Orientation: awake, alert, oriented to person, oriented to place and oriented to time Motor Exam: strength 5/5 throughout and strength abnormal Psych mental status grossly normal Skin no rashes or lesions noted and no wounds MDM MDM MDM Narrative Medical decision making narrative: Patient presents with right-sided neck pain started yesterday morning woke up with it. He has history of an injury to his head about 5 days ago for which she did not think much of it. Pain seems to be more lateral on the right cervical paraspinal musculature that reproduces pain near the base of the skull at the occipital notch. 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 Patient had a CT of the cervical spine that showed multilevel degenerative changes without evidence of fracture. Patient was in department was medicated with Valium and hydromorphone as well as some Zofran. He had little pain relief with that. This point I suspect likely muscle spasm as etiology for his pain versus possible occipital neuritis. Will write him a prescription for Valium and [place] for pain. He states that as long as he does not move he does not have much pain. Will refer to pain management as well. Lab Data Attestation: I reviewed the patient's lab results. Radiography Diagnostic Testing: Clinical Impression(s) from Imaging Studies Brain CT 03/21/24 08:03 IMPRESSION: Chronic involutional changes of the brain. 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 Sinusitis. Electronically Signed: Jan Camargo MD at 8:56 EST , Cervical Spine CT 03/21/24 08:03 IMPRESSION: Multilevel degenerative changes, as described above. Electronically Signed: Jan Camargo MD at 8:58 EST , Discharge Plan Triage Chief Complaint: Other, Pain/Inj ED Provider: Randa Gonzalez Dx/Rx/DC Orders Clinical Impression: Neck pain Instructions: ED Neck Pain Prescriptions: New hydrocodone-acetaminophen 5-325 mg tablet 1 tab PO Q4H PRN PRN (Reason: Pain) 2 Days Qty: 15 0RF naproxen [Naprosyn] 500 mg tablet 500 mg PO BID PRN (Reason: pain) Qty: 20 0RF diazepam [Valium] 5 mg tablet 5 mg PO BID PRN (Reason: muscle spasm) Qty: 10 0RF Primary Care Provider: Faheem Lawrence Referrals: Faheem Lawrence MD [Primary Care Provider] - Rohit Berry MD [Med Staff - Active Staff] - 3-5 Days Print Language: Luxembourgish Disposition Disposition: Home, Self Care
[2024-03-21] MEDS: Ondansetron 4 MG/2 ML Vial IM (08:10)
[2024-03-21] MEDS: HYDROmorphone 1 MG/ML Syringe IM (08:10)
[2024-03-21] MEDS: diazePAM 5 MG Tablet PO (08:11)
[2024-03-21 10:44] VITALS: BP 125/70; PULSE 55; RESP 18; TEMP 36.4; O2SAT 99
== END 2024-03-21 10:46 | disposition home or self-care (01) ==
PROVIDERS: Emergency Provider Emergency Medicine; PCP Internal Medicine; Visit Provider Emergency Medicine
DX: M54.2 Cervicalgia (principal); I10 Essential (primary) hypertension; M47.812 Spondylosis without myelopathy or radiculopathy, cervical region; E78.5 Hyperlipidemia, unspecified; Z87.891 Personal history of nicotine dependence; R51.9 Headache, unspecified
CPT/HCPCS: 70450; 72125; 96372; 99284; A4216; J2405